=== PATIENT | female | born 1945 | race Caucasian/White ===

== ENCOUNTER 2017-02-10 04:04 | Inpatient (IN) ==
[2017-02-10] MEDS ORDERED: methylPREDNISolone 125 MG/2 ML VIAL IVP ONE (04:20)
[2017-02-10] MEDS ORDERED: 0.9 % Sodium Chloride 1,000 ML IVC ONE (04:20)
[2017-02-10] MEDS ORDERED: Ipratropium/Albuterol Neb 3 ML IH ONE (04:20)
[2017-02-10 05:05] LABS: Basophils % 0.4 %; Eosinophils # 0.3 K/mcL (0.0-0.6); Eosinophils % 2.9 %; Hematocrit 32.7 % (35.3-44.9); Hemoglobin 10.8 g/dL (11.5-15.4); Immature Granulocytes % 0.6 % (0-4); Lymphocytes # 0.7 K/mcL (0.6-4.6); Lymphocytes % 7.3 %; Mean Corpuscular Hemoglobin 31.4 pg (28.0-33.3); Mean Corpuscular Volume 95.1 fL (83.0-100.0); Mean Platelet Volume 9.4 fL (9.4-12.4); Monocytes # 0.7 K/mcL (0.0-1.3); Monocytes % 7.2 %; Platelet Count 200 K/mcL (140-400); Red Blood Count 3.44 M/mcL (3.82-4.97); Red Cell Distribution Width 13.6 % (11.5-14.5); Segmented Neutrophils % 81.6 %
--- NOTE | 2017-02-10 05:16 | Emergency Department Note ---
Disposition Clinical Impression: Confusion Fever Qualifiers: Fever type: unspecified Qualified Code(s): R50.9 - Fever, unspecified Sepsis Qualifiers: Sepsis type: sepsis due to unspecified organism Qualified Code(s): A41.9 - Sepsis, unspecified organism Urinary tract infection Qualifiers: Urinary tract infection type: site unspecified Hematuria presence: without hematuria Qualified Code(s): N39.0 - Urinary tract infection, site not specified Disposition: Admitted As Inpatient Condition: Good Referrals: Andrea Cruz MD [Primary Care Provider] - Forms: ED Satisfaction Letter Time of Disposition: 06:57 General Adult HPI - General Chief complaint: ED Shortness of Breath/Dyspnea Stated complaint: copd sherrill Time Seen by Provider: 02/10/17 04:13 Source: patient Limitations: no limitations Nursing Notes Reviewed: Yes Vital Signs Reviewed: Yes - History of Present Illness HPI Narrative: Patient presents emergency room in the care of the family. Family is concerned because she is acting differently at home. She was evaluated by her primary care provider started on antibiotic for kidney infection 5. She is still been complaining of urinary symptoms as well as this new change in mental status. Family brought her in for evaluation. Denied fevers chills nausea vomiting or diarrhea. Denies headache vision changes shortness of breath chest pain Onset (ago): day(s) (5 days) Radiation: non-radiation Pain Severity: mild Pain Scale: 0 Consistency: constant Improves with: nothing Worsens with: nothing Associated symptoms: Reports: confusion, loss of appetite, malaise Treatments Prior to Arrival: none - Related Data Home Medications Medication Instructions Recorded Confirmed Albuterol Sulfate [Proair 2 puff IH QID PRN 06/27/15 02/10/17 Respiclick] Amlodipine Besylate [Norvasc] 10 mg PO DAILY 06/27/15 02/10/17 Aspirin Enteric Coated [Aspirin EC] 81 mg PO DAILY 06/27/15 02/10/17 Atorvastatin Calcium [Lipitor] 40 mg PO HS 06/27/15 02/10/17 Clopidogrel [Plavix] 75 mg PO DAILY 06/27/15 02/10/17 Docusate Sodium [Stool Softener] 100 mg PO BID PRN 06/27/15 02/10/17 Famotidine [Pepcid] 20 mg PO BID 06/27/15 02/10/17 Gabapentin [Neurontin] 300 mg PO BID 06/27/15 02/10/17 HYDROcodone/Acet 5/325 mg [[place] 1 tab PO BID PRN #0 06/27/15 02/10/17 5-325 mg] Ipratropium [Atrovent Inhaler] 2 puff IH Q6H PRN #0 06/27/15 02/10/17 Isosorbide MONOnitrate [Isosorbide 30 mg PO DAILY 06/27/15 02/10/17 Mononitrate ER] Lisinopril [Zestril] 40 mg PO DAILY 06/27/15 02/10/17 Loratadine [Loradamed] 10 mg PO DAILY 06/27/15 02/10/17 Nitroglycerin [Nitrostat] 0.4 mg SL AD PRN #0 06/27/15 02/10/17 [place]-3 Acid Ethyl Esters [Lovaza] 1 gm PO TID 06/27/15 02/10/17 [place]-3/Dha/Epa/Fish Oil [Fish Oil 1,000 mg PO TID #0 06/27/15 02/10/17 1,000 mg Softgel] Polyethylene Glycol 3350 [Purelax] 17 gm PO DAILY PRN #0 06/27/15 02/10/17 Esomeprazole Magnesium [Nexium] 40 mg PO DAILY #0 06/28/15 02/10/17 Beclomethasone Diprop 40mcg [Qvar 2 puff IH BID 02/10/17 02/10/17 40 mcg] Benzonatate [Tessalon] 200 mg PO BID PRN 02/10/17 02/10/17 Budesonide/Formoterol 160/4.5 2 puff IH BIDR 02/10/17 02/10/17 [Symbicort 160/4.5] Calcium Carbonate/Vitamin D3 1 tab PO DAILY 02/10/17 02/10/17 [Calcium 500 + Vit D 200 Caplet] Carvedilol [Coreg] 6.25 mg PO BIDWM 02/10/17 02/10/17 Ergocalciferol (VITAMIN D2) 50,000 unit PO QWEEK 02/10/17 02/10/17 [Vitamin D2] Guaifenesin [Siltussin SA] 200 mg PO Q6H PRN 02/10/17 02/10/17 Melatonin 3 mg PO HS PRN 02/10/17 02/10/17 Mirtazapine [Remeron] 7.5 mg PO HS 02/10/17 02/10/17 Nitrofurantoin Monohyd/M-Cryst 100 mg PO BID 02/10/17 02/10/17 [Macrobid 100 mg Capsule] Allergies Allergy/AdvReac Type Severity Reaction Status Date / Time codeine Allergy Hives Verified 06/27/15 19:28 Penicillins Allergy Hives Verified 06/27/15 19:28 All systems ED: reviewed and negative except as stated. Constitutional: Denies: fever, chills Cardiovascular: Denies: palpitations, dyspnea on exertion Respiratory: Denies: cough, dyspnea, wheezes, hemoptysis Gastrointestinal: Denies: nausea, vomiting, diarrhea, constipation Genitourinary: Reports: dysuria, frequency Musculoskeletal: Denies: back pain, neck pain Integumentary: Denies: rash Neurological: Denies: headache Past Medical History - Past Medical History Attestation: Yes The following information was validated with the patient. Source: patient, obtained from family Medical history: Reports: COPD, coronary artery disease, CVA, DVT, diabetes, GERD, hyperlipidemia, hypertension, myocardial infarction, peripheral artery disease, renal disease, TIA Surgical history: Reports: appendectomy, cholecystectomy Psychiatric history: Reports: no psych history - Social History Smoking Status: Current every day smoker Smokeless Tobacco Status: No Alcohol use: Reports: none Drug use: Reports: none Physical Exam - General Limitations: no limitations General appearance: alert, in no apparent distress - Head Head exam: atraumatic, normocephalic, normal inspection - Neck Neck exam: Present: normal inspection, full ROM, trachea midline. Absent: tenderness - Chest Chest inspection: Present: normal inspection, symmetric chest wall rise. Absent : tenderness - Respiratory Respiratory exam: Present: normal lung sounds bilaterally, wheezes. Absent: respiratory distress, stridor, accessory muscle use - Cardiovascular Cardiovascular exam: Present: normal rhythm, tachycardia - Abdominal Exam Abdominal exam: Present: soft, Non-Tender, normal bowel sounds. Absent: tenderness, distention, guarding, rebound, rigidity, Wells's sign, Rovsing's sign - Extremities Exam Extremities exam: Present: normal inspection, full ROM. Absent: tenderness, pedal edema - Back Exam Back exam: Present: normal inspection - Neurological Exam Neurological exam: Present: alert - Skin Skin exam: Present: warm, dry, intact, normal color Course Course Narrative: Patient seen and examined the time of arrival. See history of present illness. 71-year-old female presents with family for evaluation of confusion at home. She was treated for a kidney infection approximately 5 days ago. She has been on home antibiotics. Since then patient says that she has been feeling better. Family was concerned because he noticed confusion today. Denied any recent falls or injuries. No medication changes. No other acute symptoms at this time. Patient denies any chest pain shortness of breath headache vision changes nausea vomiting or diarrhea. No fevers or chills. Patient does have known COPD and emphysema. She uses inhalers at home but no oxygen. Physical exam on presentation here shows a pleasant lady smiling and talkative female. She is in no apparent distress. Lungs do have coarse expiratory wheezing. No crackles noted on exam. Heart is regular. Abdomen is soft nontender nondistended. No CVA tenderness noted on evaluation. She was also shown is appropriately she has good capillary refill. She has full range of motion of extremities. Patient will have treatments and steroids provided here. Laboratory workup ordered. Concern is noted for fever and tachycardia on presentation. He started the sepsis panel that time. Fluids to be given antibiotic regimen ordered with concern for urinary tract infection. Nausea medication also degenerative. Chest x-ray EKG and troponin added as well. Patient still resting comfortably the bed. Disposition pending treatment course. Family agrees with the projected course of care. No other acute recommendations or concerns at this time. Patient will not have the 30 mg/kg fluid bolus because of her history of CHF and mild pitting edema in the lower extremities. Blood pressure is stable. We will continue to monitor. - Reevaluation(s) Reevaluation #1: There is abundant grossly contaminated urine. Mental status is returning to baseline. Breathing is less labored. Heart rate is coming down. Fluid hydration to be controlled at this point without clots as needed. Blood pressure stable. Patient has history of CHF so controlled fluid hydration for sepsis protocol to be utilized. Antibiotic regimen given. Hospitals patient this time for admission. Time: 06:30 Reevaluation #2: Patient found having urinary tract infection. Mental status is back to baseline. Hydration given with aliquots secondary to her CHF. Patient fever is coming under control fluid hydration Tylenol. Patient was discussed with the hospitalist Dr. triplett. We reviewed the patient's presentation symptoms and medical history. Intervention including steroids albuterol inhaler antibiotics fluid hydration. He had no other recommendations this time. Patient read by the hospital for urinary tract infection confusion and altered mental status and sepsis-like presentation. Patient still was not comfortable in the bed no other acute issues throughout the course. Emergency room. We will continue to monitor until the admission process is completed Time: 06:56 Vital Signs Temperature 101.2 F H 02/10/17 04:06 Pulse Rate 112 02/10/17 04:06 Respiratory Rate 24 02/10/17 04:06 Blood Pressure 137/66 02/10/17 04:06 O2 Sat by Pulse Oximetry 96 02/10/17 04:06 Temperature 101.2 F H 02/10/17 04:06 Pulse Rate 90 02/10/17 07:16 Respiratory Rate 18 02/10/17 07:16 Blood Pressure 113/61 02/10/17 07:16 O2 Sat by Pulse Oximetry 94 L 02/10/17 07:16 Oxygen Delivery Oxygen Delivery Nasal Cannula Medical Decision Making - MDM Narrative Medical decision making narrative: Confusion, urinary tract infection, fever, tachycardia, sepsis - Differential Diagnosis Initial depression, confusion, sepsis, fever - Medical Records Medical records reviewed: Yes I reviewed the patient's medical records. - Lab Data Lab results reviewed: Yes I reviewed the patient's lab results. Result diagrams: 02/10/17 04:43 02/10/17 04:43 - Radiology Data Radiology results reviewed: Yes I reviewed the patient's radiology results. chest at chest x-ray shows bilateral pulmonary edema no other acute pathology - EKG Data EKG #1 EKG attestation: Yes I reviewed and interpreted this EKG. EKG shows normal: sinus rhythm, axis, intervals, QRS complexes, ST-T waves Rate: normal Rhythm: NSR [place]/QRS: normal When compared to previous EKG there are: no significant changes Interpretation: no acute changes, unchanged when compared to prior tracing (date ) Critical Care Time Critical Care Time: Yes Total Critical Care Time: 35 Attestation: Independent of procedures or medical intervention Attestation Statement - Attestation Attestation: For this encounter, I have reviewed the resident, [employer], or PA documentation, treatment plan, and medical decision making; and I have had face to face time with this patient. 71-year-old female brought in by family for concerns of altered mental status, difficulty in breathing. Patient reports feeling lightheaded today and is unsteady on her feet. Patient reports falling without hitting her head or having loss of consciousness. Patient reports or difficulty in breathing is similar to previous COPD exacerbations. Patient is recently being treated for urinary tract infection. Patient has wheezing on the bilateral posterior lung leigh on physical exam. She has a urinary tract infection. Chest x-ray shows pulmonary edema. Patient will be admitted for sepsis and continuation of care.
[2017-02-10 05:18] LABS: Activated Partial Thrombo Time 30.3 Seconds (26.0-36.0); Albumin 2.8 g/dL (3.5-5.0); Albumin/Globulin Ratio 0.6 (1.1-2.2); Bilirubin,Direct 0.2 mg/dL (0.0-0.5); Bilirubin,Indirect 0.4 mg/dL (0.0-1.2); Bilirubin,Total 0.6 mg/dL (0.2-1.2); Calcium 8.5 mg/dL (8.6-10.8); Globulin 4.5 g/dL (2.4-3.5); Magnesium 1.5 mg/dL (1.6-2.6); Phosphorous 3.8 mg/dL (2.3-4.7); Potassium 4.5 mEq/L (3.5-4.5); Total Protein 7.3 g/dL (6.0-8.3)
[2017-02-10 05:54] LABS: Bilirubin,Urine Negative (Negative); Blood,Urine Large (Negative); Clarity,Urine Cloudy (Clear); Color,Urine Yellow (Yellow); Glucose,Urine (UA) Normal (Normal); Ketones,Urine Negative (Negative); Leukocyte Esterase,Urine Moderate (Negative); Nitrite,Urine Negative (Negative); Protein,Urine 100 mg/dL (Neg-Trace); Specific Gravity,Urine 1.018 (1.010-1.025); Urobilinogen,Urine Normal (Normal)
[2017-02-10 05:57] LABS: Hyaline Casts,Urine None Seen per lpf (None-Few); Squamous Epithelial Cell,Urine Many per lpf (None-Few); WBC,Urine 30-50 per hpf (0-3)
[2017-02-10 06:14] LABS: RBC,Urine 15-30 per hpf (0-3)
[2017-02-10 06:15] LABS: Bacteria,Urine Many per hpf (None-Few); Mucus,Urine Few (Few)
--- NOTE | 2017-02-10 07:10 | Electrocardiograph Report ---
[facility] Test Date: 2017-02-10 Pat Name: Libby Robertson Department: 104 Room: Gender: F [employer] Supervisor: : 1945 Requested By: Moris Juarez Order Number: [id number] Reading MD: Adryan Bell DO Measurements Intervals [place] Rate: 104 P: 75 IN: 138 QRS: 52 QRSD: 75 T: 69 QT: 288 QTc: 349 Interpretive Statements SINUS TACHYCARDIA ABNORMAL RHYTHM ECG Electronically Signed On 02-10-2017 7:08:51 EDT by Adryan Bell DO
--- NOTE | 2017-02-10 09:40 | Internal Med History&Physical ---
Date of Encounter: 02/10/17 Time of Encounter: 09:36 Assessment and Plan (1) Severe sepsis Current visit: Yes Status: Acute We will treat the patient with IV fluids, IV ceftriaxone. Follow-up blood cultures. I will not give her the 30 mL per KG bolus due to renal failure and chest x-ray showing pulmonary edema, I am concerned that giving her too much fluid could worsen her respiratory status and potentially could cause need for mechanical ventilation. I will repeat the lactic acid level at 3 hours. (2) Chronic kidney disease, stage 3 Current visit: Yes Status: Acute (3) Anemia in chronic kidney disease Current visit: Yes Status: Acute Monitor hemoglobin and hematocrit. Check iron studies. (4) Tobacco abuse disorder Current visit: Yes Status: Acute Nicotine patch. (5) Tobacco abuse counseling Current visit: Yes Status: Acute I have counseled the patient regarding smoking cessation for 7 minutes. (6) Acute kidney injury Current visit: Yes Status: Acute IV fluids. Avoid nephrotoxins. Hold lisinopril. Monitor kidney function. (7) COPD (chronic obstructive pulmonary disease) Current visit: No Status: Acute Inhaled albuterol and Atrovent. Continue Qvar and Symbicort. Qualifiers: COPD type: chronic bronchitis Chronic bronchitis type: simple Qualified Code(s): J41.0 - Simple chronic bronchitis (8) Urinary tract infection Current visit: Yes Status: Acute IV ceftriaxone. I have reviewed her prior urine cultures. The last one from June 2016 grew Escherichia coli which was multiply sensitive. Prior to that her urine cultures grew Proteus and Escherichia coli all sensitive to cephalosporins. A urine culture is pending. We will follow up sensitivities and adjust antibiotic therapy accordingly. Qualifiers: Urinary tract infection type: acute cystitis Hematuria presence: with hematuria Qualified Code(s): N30.01 - Acute cystitis with hematuria (9) Coronary artery disease Current visit: Yes Status: Acute Continue with aspiri , Plavix, nitrate statin and beta david. Qualifiers: Coronary Disease-Associated Artery/Lesion type: [place] artery [place] vs. transplanted heart: [place] heart Associated angina: without angina Qualified Code(s): I25.10 - Atherosclerotic heart disease of [place] coronary artery without angina pectoris (10) History of CVA (cerebrovascular accident) Current visit: Yes Status: Acute (11) Acute metabolic encephalopathy Current visit: Yes Status: Acute Possibly due to sepsis, urinary tract infection, also could be secondary to CO2 retention due to COPD and undiagnosed obstructive sleep apnea. I will hold the Neurontin which could contribute to altered mental status especially in the context of worsening kidney failure. I will check a ABG on room air. If the mental status does not improve will obtain a head CT given the patient's history of CVA. We will monitor her closely. We will institute fall precautions. She is at high risk for morbidity mortality and complications due to severe sepsis and altered mental status. Internal Medicine - H&P: HPI Chief complaint: Mental confusion Admitted From: Emergency Dept Plans for Post Hospital Care: Home History of present illness: .Ms. Robertson is a 71 year old female with past medical history significant for diabetes, COPD, chronic tobacco abuse and chronic renal insufficiency who was brought to the hospital for confusion and lower abdominal pain. She has been having lower abdominal pain for 1 week, she was diagnosed with a UTI by her primary care physician and was started on treatment with Macrobid 3 days ago. She was able to take her tablets however she started developing dysuria and worsening, moderate, burning lower abdominal pain triggered by urination. She reports associated fevers and chills, this is confirmed by the patient's daughter who says the patient has been having more confusion over the last 3 days and fever on and off. She reports associated nausea, no vomiting or diarrhea. She reports daytime somnolence and feeling more depressed. A 10 point review of systems was negative except per the history of present illness Family history was positive for history of coronary artery disease in the patient's father. Patient's daughter has bipolar disorder. Social history: Patient lives at home with her daughter, she smokes 30 cigarettes a day and has been a smoker all her life. Denies alcohol and drug use Past Med Surg Social Fam HX - Past Medical History Medical history: COPD, coronary artery disease, CVA, DVT, diabetes, GERD, hyperlipidemia, hypertension, myocardial infarction, peripheral artery disease, renal disease, TIA Psychiatric history: no psych history - Past Surgical History Surgical History: appendectomy, cholecystectomy, knee replacement - Social History Smoking Status: Current every day smoker Packs per day: 1.5 Smokeless Tobacco Status: No Alcohol use: none Drug use: none - Family History Father History Unknown: Yes Adopted: No Family Member Ethnicity: Non- Living Status: Hx Family Cardiac Disorders: Yes Hx Family Respiratory Disorders: Yes Hx Family Cancer: Yes Hx Family GI Disorders: No Hx Family Endocrine Disorder: No Hx Family Neuromuscular Disorders: Yes Hx Family Neurologic Disorders: Yes Hx Family HEENT Disorders: No Hx Family Autoimmune Disorders: No Internal Medicine - H&P: Meds Albuterol Sulfate [Proair Respiclick] 2 puff IH QID PRN 06/27/15 [History] Amlodipine Besylate [Norvasc] 10 mg PO DAILY 06/27/15 [History] Aspirin Enteric Coated [Aspirin EC] 81 mg PO DAILY 06/27/15 [History] Atorvastatin Calcium [Lipitor] 40 mg PO HS 06/27/15 [History] Clopidogrel [Plavix] 75 mg PO DAILY 06/27/15 [History] Docusate Sodium [Stool Softener] 100 mg PO BID PRN 06/27/15 [History] Famotidine [Pepcid] 20 mg PO BID 06/27/15 [History] Gabapentin [Neurontin] 300 mg PO BID 06/27/15 [History] HYDROcodone/Acet 5/325 mg [[place] 5-325 mg] 1 tab PO BID PRN #0 06/27/15 [ History] Ipratropium [Atrovent Inhaler] 2 puff IH Q6H PRN #0 06/27/15 [History] Isosorbide MONOnitrate [Isosorbide Mononitrate ER] 30 mg PO DAILY 06/27/15 [ History] Lisinopril [Zestril] 40 mg PO DAILY 06/27/15 [History] Loratadine [Loradamed] 10 mg PO DAILY 06/27/15 [History] Nitroglycerin [Nitrostat] 0.4 mg SL AD PRN #0 06/27/15 [History] [place]-3 Acid Ethyl Esters [Lovaza] 1 gm PO TID 06/27/15 [History] [place]-3/Dha/Epa/Fish Oil [Fish Oil 1,000 mg Softgel] 1,000 mg PO TID #0 [History] Polyethylene Glycol 3350 [Purelax] 17 gm PO DAILY PRN #0 06/27/15 [History] Esomeprazole Magnesium [Nexium] 40 mg PO DAILY #0 06/28/15 [History] Beclomethasone Diprop 40mcg [Qvar 40 mcg] 2 puff IH BID 02/10/17 [History] Benzonatate [Tessalon] 200 mg PO BID PRN 02/10/17 [History] Budesonide/Formoterol 160/4.5 [Symbicort 160/4.5] 2 puff IH BIDR 02/10/17 [ History] Calcium Carbonate/Vitamin D3 [Calcium 500 + Vit D 200 Caplet] 1 tab PO DAILY [History] Carvedilol [Coreg] 6.25 mg PO BIDWM 02/10/17 [History] Ergocalciferol (VITAMIN D2) [Vitamin D2] 50,000 unit PO QWEEK 02/10/17 [History] Guaifenesin [Siltussin SA] 200 mg PO Q6H PRN 02/10/17 [History] Melatonin 3 mg PO HS PRN 02/10/17 [History] Mirtazapine [Remeron] 7.5 mg PO HS 02/10/17 [History] Nitrofurantoin Monohyd/M-Cryst [Macrobid 100 mg Capsule] 100 mg PO BID 02/10/17 [History] Allergies codeine Allergy (Verified 06/27/15 19:28) Hives Penicillins Allergy (Verified 06/27/15 19:28) Hives All Systems PM: A 10-system review of systems was performed and is negative for pertinent findings except as documented above in the HPI. - Constitutional Vitals: Temp Pulse Resp BP Pulse Ox 97.0 F L 79 19 96/50 94 L 02/10/17 08:41 02/10/17 08:41 02/10/17 08:41 02/10/17 08:41 02/10/17 08:41 General appearance: Present: A&O X 3, no acute distress, obese - Head Head exam: Present: atraumatic, normocephalic - Eye Eye exam: Present: PERRL, conjuntiva pink, sclera anicteric Pupils: Present: PERRL - Respiratory Respiratory exam: Present: wheezes (Scattered expiratory wheezes). Absent: accessory muscle use, rales, rhonchi - Cardiovascular Cardiovascular exam: Present: RRR, +S1, +S2. Absent: diastolic murmur, gallop, rubs, systolic murmur - GI/Abdominal GI/Abdominal exam: Present: normal bowel sounds, soft, no peritoneal signs. Absent: distended, tenderness - Extremities Exam Extremities exam: Present: warm, radial pulses palpable and symetrical. Absent : calf tenderness, cyanotic, pedal edema - Neurological Exam Neurological exam: Present: CN II-XII intact, oriented X3, no focal deficits. Absent: pronater drift, facial droop, speech deficit - Skin Skin exam: Present: dry, intact Internal Med - H&P Results - Labs CBC & Chem 7: 02/10/17 04:43 02/10/17 04:43 - EKG Data -: EKG Interpreted by Myself (Sinus tachycardia 10 4 bpm ) EKG shows normal: axis, intervals, QRS complexes, ST-T waves
[2017-02-10] MEDS ORDERED: GuaiFENesin Liq 200 MG/10 ML UDC PO PRN (09:47)
[2017-02-10] MEDS ORDERED: Nitroglycerin 0.4 MG TAB.SUBL SL PRN (09:47)
[2017-02-10] MEDS ORDERED: Famotidine 20 MG TABLET PO SCH (10:00)
[2017-02-10] MEDS ORDERED: Ondansetron 4 MG/2 ML VIAL IVP PRN (10:02)
[2017-02-10] MEDS ORDERED: Acetaminophen 325 MG TABLET PO PRN (10:02)
[2017-02-10] MEDS ORDERED: Naloxone 0.4 MG/ML INJ IVP PRN (10:02)
[2017-02-10] MEDS ORDERED: *HR* Dextrose 50 % in Water (Syg) 50 ML SYRINGE IVP PRN (10:07)
[2017-02-10] MEDS ORDERED: Dextrose Gel 15 GM PO PRN ×2 (10:07)
[2017-02-10] MEDS ORDERED: Albuterol 2.5 MG/3 ML NEBULIZER IH PRN (10:14)
[2017-02-10] MEDS ORDERED: 0.9 % Sodium Chloride 1,000 ML IVC SCH (10:15)
[2017-02-10 10:52] LABS: Hemoglobin A1C 5.4 %
[2017-02-10 11:12] LABS: ABG Base Excess -6.3 mEq/L (-2.0 to 3.0); ABG Oxygen Saturation 93 % (95-98); ABG PCO2 36 mmHg (35-45); ABG PH 7.33 pH Units (7.32-7.45); ABG PO2 71 mmHg (85-104); ABG TCO2 20.1 mEq/L (20-26)
[2017-02-10 11:13] LABS: Blood Gas FiO2 28 %
[2017-02-10] MEDS: Budesonide/Formoterol 160/4.5 MDI IH SCH ×2 (11:23→21:23)
[2017-02-10] MEDS: Nicotine 21 MG PATCH.TD24 TD SCH (11:25)
[2017-02-10] MEDS: *HR* HYDROcodone/Acet 5/325 mg TABLET PO PRN (12:59)
[2017-02-10] MEDS: Insulin LISPRO 300 UNITS/3 ML VIAL SQ SCH ×2 (13:24→16:35)
[2017-02-10] MEDS: Ipratropium/Albuterol Neb 3 ML IH SCH ×2 (15:45→21:23)
[2017-02-10 20:13] LABS: Acinetobacter baumannii by PCR Not Detected (Not Detect); Candida albicans by PCR Not Detected (Not Detect); Candida glabrata by PCR Not Detected (Not Detect); Candida krusei by PCR Not Detected (Not Detect); Candida parapsilosis by PCR Not Detected (Not Detect); Candida tropicalis by PCR Not Detected (Not Detect); Enterococcus by PCR Not Detected (Not Detect); Escherichia coli by PCR ***DETECTED*** (Not Detect); Klebsiella oxytoca by PCR Not Detected (Not Detect); Klebsiella pneumoniae by PCR Not Detected (Not Detect); Pseudomonas aeruginosa by PCR Not Detected (Not Detect); Serratia marcescens by PCR Not Detected (Not Detect); Staphylococcus aureus by PCR Not Detected (Not Detect); Streptococcus agalactiae(B)PCR Not Detected (Not Detect); Streptococcus by PCR Not Detected (Not Detect); Streptococcus pneumoniae PCR Not Detected (Not Detect); Streptococcus pyogenes (A) PCR Not Detected (Not Detect)
[2017-02-10] MEDS: Mirtazapine 15 MG TABLET PO SCH (20:34)
[2017-02-10] MEDS ORDERED: Melatonin 3 MG TABLET PO PRN (21:00)
[2017-02-10] MEDS: Beclomethasone 40mcg MDI IH SCH (21:23)
[2017-02-10] MEDS: Levofloxacin 750 MG/150 ML 750 MG/150 ML BAG IVPB SCH (21:27)
[2017-02-11] MEDS: Ipratropium/Albuterol Neb 3 ML IH SCH ×4 (03:44→21:00)
[2017-02-11 06:38] LABS: Basophils % 0.1 %; Eosinophils % 0.1 %; Hematocrit 31.4 % (35.3-44.9); Hemoglobin 10.4 g/dL (11.5-15.4); Immature Granulocytes % 1.2 % (0-4); Lymphocytes # 1.1 K/mcL (0.6-4.6); Lymphocytes % 10.3 %; Mean Corpuscular HGB Conc 33.1 g/dL (31.6-35.5); Mean Corpuscular Hemoglobin 31.5 pg (28.0-33.3); Mean Corpuscular Volume 95.2 fL (83.0-100.0); Mean Platelet Volume 10.3 fL (9.4-12.4); Monocytes # 0.4 K/mcL (0.0-1.3); Monocytes % 4.2 %; Neutrophils # 8.7 K/mcL (1.6-8.9); Platelet Count 224 K/mcL (140-400); Red Cell Distribution Width 13.5 % (11.5-14.5); Segmented Neutrophils % 84.1 %
[2017-02-11 06:54] LABS: Calcium 9.2 mg/dL (8.6-10.8); Magnesium 1.8 mg/dL (1.6-2.6); Potassium 4.5 mEq/L (3.5-4.5)
[2017-02-11] MEDS: Insulin LISPRO 300 UNITS/3 ML VIAL SQ SCH ×3 (07:50→15:54)
[2017-02-11] MEDS: Nicotine 21 MG PATCH.TD24 TD SCH (07:52)
[2017-02-11] MEDS: amLODIPine 5 MG TABLET PO SCH (07:53)
[2017-02-11] MEDS: Aspirin Enteric Coated 81 MG Tablet PO SCH (07:54)
[2017-02-11] MEDS: Isosorbide MONOnitrate (24 HR) 30 MG TAB.ER.24H PO SCH (07:54)
[2017-02-11] MEDS: Loratadine 10 MG TABLET PO SCH (07:54)
[2017-02-11] MEDS: Famotidine 20 MG TABLET PO SCH (07:54)
--- NOTE | 2017-02-11 10:35 | Internal Med Progress Note ---
Date of Encounter: 02/11/17 Time of Encounter: 10:32 - Assessment and plan (1) Severe sepsis Current Visit: Yes Status: Acute Assessment and plan: Likely source is urinary tract infection. Review of her medical records prior UTIs were sensitive to fluoroquinolones. We will treat her with Levaquin. Monitor temperature curve and WBC trend. IV fluids. (2) Chronic kidney disease, stage 3 Current Visit: Yes Status: Acute Assessment and plan: Avoid nephrotoxins. Monitor kidney function. (3) Anemia in chronic kidney disease Current Visit: Yes Status: Acute Assessment and plan: Transfuse if hemoglobin below 8.0. Check hemoglobin and hematocrit on the morning. (4) Tobacco abuse disorder Current Visit: Yes Status: Acute Assessment and plan: Continue with NicoDerm. (5) Tobacco abuse counseling Current Visit: Yes Status: Acute (6) Acute kidney injury Current Visit: Yes Status: Acute (7) COPD (chronic obstructive pulmonary disease) Current Visit: No Status: Acute Qualifiers: COPD type: chronic bronchitis Chronic bronchitis type: simple Qualified Code(s): J41.0 - Simple chronic bronchitis (8) Urinary tract infection Current Visit: Yes Status: Acute Qualifiers: Urinary tract infection type: acute cystitis Hematuria presence: with hematuria Qualified Code(s): N30.01 - Acute cystitis with hematuria (9) Coronary artery disease Current Visit: Yes Status: Acute Qualifiers: Coronary Disease-Associated Artery/Lesion type: [place] artery [place] vs. transplanted heart: [place] heart Associated angina: without angina Qualified Code(s): I25.10 - Atherosclerotic heart disease of [place] coronary artery without angina pectoris (10) History of CVA (cerebrovascular accident) Current Visit: Yes Status: Acute (11) Acute metabolic encephalopathy Current Visit: Yes Status: Acute - Subjective Interval history: Feels better, dysuria has improved over last 24 hrs, now very mild. She says SOB , w/ some wheezing, no CP no fever - Constitutional Vitals: Temp Pulse Resp BP Pulse Ox 97.7 F 57 18 96/53 97 02/11/17 10:27 02/11/17 10:27 02/11/17 10:27 02/11/17 10:27 02/11/17 10:27 General appearance: Present: A&O X 3, no acute distress, obese - Eye Eye exam: Present: PERRL, conjuntiva pink, sclera anicteric Pupils: Present: PERRL - Neck Neck exam general surgery: Present: supple, trachea midline. Absent: lymphadenopathy - Respiratory Respiratory exam: Present: CTAB. Absent: accessory muscle use, rales, rhonchi, wheezes - Cardiovascular Cardiovascular exam: Present: RRR, +S1, +S2. Absent: diastolic murmur, gallop, rubs, systolic murmur - GI/Abdominal GI/Abdominal exam: Present: normal bowel sounds, soft, no peritoneal signs. Absent: distended, tenderness Internal Medicine: Result - Labs CBC & Chem 7: 02/11/17 05:47 02/11/17 05:47 Labs: Short CBC 02/11/17 Range/Units 05:47 WBC 10.3 (4.3-11.1) K/mcL Hgb 10.4 L (11.5-15.4) g/dL Hct 31.4 L (35.3-44.9) % Plt Count 224 (140-400) K/mcL Neutrophils # 8.7 (1.6-8.9) K/mcL BMP 02/11/17 05:47 Sodium 140 Potassium 4.5 Chloride 112 H Carbon Dioxide 18 L BUN 33 H Creatinine 1.34 H Glucose 170 H Calcium 9.2 - ABG Interpretation ABG results: ABG ABG pH 7.33 pH Units (7.32-7.45) 02/10/17 11:00 ABG pCO2 36 mmHg (35-45) 02/10/17 11:00 ABG pO2 71 mmHg (85-104) L 02/10/17 11:00 ABG O2 Saturation 93 % (95-98) L 02/10/17 11:00 PT/INR, D-dimer PT 11.0 Seconds (9.4-12.1) 02/10/17 04:43 Consult Discharge Plan - Plan Referrals: Andrea Cruz MD [Primary Care Provider] - 02/18/17 10:15 am
[2017-02-11] MEDS: *HR* HYDROcodone/Acet 5/325 mg TABLET PO PRN (10:37)
[2017-02-11] MEDS: Beclomethasone 40mcg MDI IH SCH ×2 (10:52→21:00)
[2017-02-11] MEDS: Budesonide/Formoterol 160/4.5 MDI IH SCH ×2 (10:52→21:00)
[2017-02-11] MEDS: predniSONE 20 MG TABLET PO SCH (11:21)
[2017-02-11] MEDS: Mirtazapine 15 MG TABLET PO SCH (20:13)
[2017-02-12] MEDS: Ipratropium/Albuterol Neb 3 ML IH SCH ×4 (04:02→21:51)
[2017-02-12] MEDS: *HR* HYDROcodone/Acet 5/325 mg TABLET PO PRN (06:00)
[2017-02-12 07:48] LABS: Basophils % 0.1 %; Eosinophils % 0.1 %; Hematocrit 28.3 % (35.3-44.9); Hemoglobin 9.3 g/dL (11.5-15.4); Immature Granulocytes % 1.5 % (0-4); Lymphocytes # 1.8 K/mcL (0.6-4.6); Lymphocytes % 18.4 %; Mean Corpuscular HGB Conc 32.9 g/dL (31.6-35.5); Mean Corpuscular Hemoglobin 30.9 pg (28.0-33.3); Monocytes # 0.6 K/mcL (0.0-1.3); Monocytes % 5.7 %; Neutrophils # 7.3 K/mcL (1.6-8.9); Platelet Count 233 K/mcL (140-400); Red Blood Count 3.01 M/mcL (3.82-4.97); Red Cell Distribution Width 13.8 % (11.5-14.5); Segmented Neutrophils % 74.2 %
[2017-02-12] MEDS: Aspirin Enteric Coated 81 MG Tablet PO SCH (08:00)
[2017-02-12] MEDS: Insulin LISPRO 300 UNITS/3 ML VIAL SQ SCH ×3 (08:00→17:02)
[2017-02-12] MEDS: Isosorbide MONOnitrate (24 HR) 30 MG TAB.ER.24H PO SCH (08:01)
[2017-02-12] MEDS: Loratadine 10 MG TABLET PO SCH (08:01)
[2017-02-12] MEDS: Famotidine 20 MG TABLET PO SCH (08:01)
[2017-02-12] MEDS: amLODIPine 5 MG TABLET PO SCH (08:02)
[2017-02-12] MEDS: predniSONE 20 MG TABLET PO SCH (08:02)
[2017-02-12 08:06] LABS: BUN/Creatinine Ratio 31 (6-26); Blood Urea Nitrogen 33 mg/dL (7-20); Calcium 8.8 mg/dL (8.6-10.8); Carbon Dioxide 21 mEq/L (19-29); Chloride 113 mEq/L (98-109); Glucose 110 mg/dL (70-99); Osmolality,Calculated 300 (280-300); Potassium 4.4 mEq/L (3.5-4.5); Sodium 141 mEq/L (136-145); eGFR For African Americans > 60 (> 60); eGFR For Non-African Americans 52 (> 60)
[2017-02-12] MEDS: Nicotine 21 MG PATCH.TD24 TD SCH (08:08)
[2017-02-12] MEDS: Beclomethasone 40mcg MDI IH SCH ×2 (10:06→21:53)
[2017-02-12] MEDS: Budesonide/Formoterol 160/4.5 MDI IH SCH ×2 (10:06→21:53)
--- NOTE | 2017-02-12 13:39 | Internal Med Progress Note ---
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 iv Levaquin since she is allergic to PCN. Likely source is urinary tract infection. Review of her medical records prior UTIs were sensitive to fluoroquinolones. We will treat her with Levaquin. Monitor temperature curve and WBC trend. IV fluids. repeat blood cultures today. f/u prelim in am (2) Chronic kidney disease, stage 3 Current Visit: Yes Status: Acute Assessment and plan: Avoid nephrotoxins. Monitor kidney function. Cr improving. (3) Anemia in chronic kidney disease Current Visit: Yes Status: Acute Assessment and plan: Transfuse if hemoglobin below 8.0. Check hemoglobin and hematocrit on the morning. (4) Tobacco abuse disorder Current Visit: Yes Status: Acute Assessment and plan: Continue with NicoDerm. (5) Tobacco abuse counseling Current Visit: Yes Status: Acute (6) Acute kidney injury Current Visit: Yes Status: Acute Assessment and plan: Encourage oral fluids, no need for ivf. Cr improving (7) COPD (chronic obstructive pulmonary disease) Current Visit: No Status: Acute Assessment and plan: wheezing today, SOB. Add prednisone, ct Duoneb Qualifiers: COPD type: chronic bronchitis Chronic bronchitis type: simple Qualified Code(s): J41.0 - Simple chronic bronchitis (8) Urinary tract infection Current Visit: Yes Status: Acute Qualifiers: Urinary tract infection type: acute cystitis Hematuria presence: with hematuria Qualified Code(s): N30.01 - Acute cystitis with hematuria (9) Coronary artery disease Current Visit: Yes Status: Acute Qualifiers: Coronary Disease-Associated Artery/Lesion type: [place] artery [place] vs. transplanted heart: [place] heart Associated angina: without angina Qualified Code(s): I25.10 - Atherosclerotic heart disease of [place] coronary artery without angina pectoris (10) History of CVA (cerebrovascular accident) Current Visit: Yes Status: Acute (11) Acute metabolic encephalopathy Current Visit: Yes Status: Acute - Subjective Interval history: 01/15 pt says SOB now mild improved since yesterday. Dysuria has resolved Feels better, dysuria has improved over last 24 hrs, now very mild. She says SOB , w/ some wheezing, no CP no fever - Constitutional Vitals: Temp Pulse Resp BP Pulse Ox 98.3 F 64 18 100/58 97 02/12/17 10:58 02/12/17 10:58 02/12/17 10:58 02/12/17 10:58 02/12/17 10:58 General appearance: Present: A&O X 3, no acute distress, obese - Eye Eye exam: Present: PERRL, conjuntiva pink, sclera anicteric Pupils: Present: PERRL - Respiratory Respiratory exam: Present: CTAB, wheezes. Absent: accessory muscle use, rales, rhonchi - Cardiovascular Cardiovascular exam: Present: RRR, +S1, +S2. Absent: diastolic murmur, gallop, rubs, systolic murmur - GI/Abdominal GI/Abdominal exam: Present: normal bowel sounds, soft, no peritoneal signs. Absent: distended, tenderness - Extremities Exam Extremities exam: Present: warm, radial pulses palpable and symetrical. Absent : calf tenderness, cyanotic, pedal edema - Skin Skin exam: Present: dry, intact Internal Medicine: Result - Labs CBC & Chem 7: 02/12/17 06:40 02/12/17 06:40 Labs: Short CBC 02/12/17 Range/Units 06:40 WBC 9.8 (4.3-11.1) K/mcL Hgb 9.3 L (11.5-15.4) g/dL Hct 28.3 L (35.3-44.9) % Plt Count 233 (140-400) K/mcL Neutrophils # 7.3 (1.6-8.9) K/mcL BMP 02/12/17 06:40 Sodium 141 Potassium 4.4 Chloride 113 H Carbon Dioxide 21 BUN 33 H Creatinine 1.05 Glucose 110 H Calcium 8.8 - ABG Interpretation ABG results: ABG ABG pH 7.33 pH Units (7.32-7.45) 02/10/17 11:00 ABG pCO2 36 mmHg (35-45) 02/10/17 11:00 ABG pO2 71 mmHg (85-104) L 02/10/17 11:00 ABG O2 Saturation 93 % (95-98) L 02/10/17 11:00 PT/INR, D-dimer PT 11.0 Seconds (9.4-12.1) 02/10/17 04:43 Consult Discharge Plan - Plan Referrals: Andrea Cruz MD [Primary Care Provider] - 02/18/17 10:15 am
[2017-02-12] MEDS: Levofloxacin 750 MG/150 ML 750 MG/150 ML BAG IVPB SCH (22:10)
[2017-02-12] MEDS: Mirtazapine 15 MG TABLET PO SCH (22:12)
[2017-02-13] MEDS: Ipratropium/Albuterol Neb 3 ML IH SCH ×4 (04:22→21:58)
[2017-02-13] MEDS: Insulin LISPRO 300 UNITS/3 ML VIAL SQ SCH ×3 (07:34→16:22)
[2017-02-13] MEDS: Aspirin Enteric Coated 81 MG Tablet PO SCH (07:35)
[2017-02-13] MEDS: Famotidine 20 MG TABLET PO SCH (07:35)
[2017-02-13] MEDS: amLODIPine 5 MG TABLET PO SCH (07:35)
[2017-02-13] MEDS: Loratadine 10 MG TABLET PO SCH (07:35)
[2017-02-13] MEDS: predniSONE 20 MG TABLET PO SCH (07:35)
[2017-02-13] MEDS: Isosorbide MONOnitrate (24 HR) 30 MG TAB.ER.24H PO SCH (07:36)
[2017-02-13 07:51] LABS: Basophils % 0.3 %; Eosinophils # 0.1 K/mcL (0.0-0.6); Hematocrit 29.7 % (35.3-44.9); Hemoglobin 9.8 g/dL (11.5-15.4); Immature Granulocytes % 2.3 % (0-4); Lymphocytes # 2.9 K/mcL (0.6-4.6); Lymphocytes % 30.3 %; Mean Corpuscular Hemoglobin 30.5 pg (28.0-33.3); Mean Corpuscular Volume 92.5 fL (83.0-100.0); Mean Platelet Volume 9.4 fL (9.4-12.4); Monocytes # 0.7 K/mcL (0.0-1.3); Monocytes % 7.6 %; Neutrophils # 5.6 K/mcL (1.6-8.9); Platelet Count 240 K/mcL (140-400); Red Blood Count 3.21 M/mcL (3.82-4.97); Red Cell Distribution Width 13.5 % (11.5-14.5); Segmented Neutrophils % 58.5 %
[2017-02-13 08:00] LABS: BUN/Creatinine Ratio 36 (6-26); Blood Urea Nitrogen 32 mg/dL (7-20); Calcium 8.6 mg/dL (8.6-10.8); Carbon Dioxide 23 mEq/L (19-29); Chloride 110 mEq/L (98-109); Glucose 83 mg/dL (70-99); Osmolality,Calculated 302 (280-300); Potassium 4.1 mEq/L (3.5-4.5); Sodium 143 mEq/L (136-145); eGFR For African Americans > 60 (> 60); eGFR For Non-African Americans > 60 (> 60)
--- NOTE | 2017-02-13 09:42 | Internal Med Progress Note ---
Date of Encounter: 02/13/17 Time of Encounter: 09:40 - Assessment and plan (1) Severe sepsis Current Visit: Yes Status: Acute Assessment and plan: 02/14: Repeat blood cultures pending. Patient has been afebrile. White count is within normal limits. She received treatment with IV Levaquin every 48 hours. Mild kidney function has improved. I will change Levaquin to every 24 hours. Follow-up blood cultures and if negative I will switch to oral antibiotic and planned to discharge home tomorrow. 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 iv Levaquin since she is allergic to PCN. Likely source is urinary tract infection. Review of her medical records prior UTIs were sensitive to fluoroquinolones. We will treat her with Levaquin. Monitor temperature curve and WBC trend. IV fluids. repeat blood cultures today. f/u prelim in am (2) Chronic kidney disease, stage 3 Current Visit: Yes Status: Acute Assessment and plan: Avoid nephrotoxins. Monitor kidney function. Cr continuing to improve. (3) Anemia in chronic kidney disease Current Visit: Yes Status: Acute Assessment and plan: Transfuse if hemoglobin below 8.0. Check hemoglobin and hematocrit tomorrow. Hemoglobin is stable. We will check iron panel and ferritin B12 and folate. (4) Tobacco abuse disorder Current Visit: Yes Status: Acute Assessment and plan: Continue with NicoDerm. I have provided smoking cessation counseling for 5 minutes today. She intends to continue using the patch and quit smoking. (5) Tobacco abuse counseling Current Visit: Yes Status: Acute (6) Acute kidney injury Current Visit: Yes Status: Acute Assessment and plan: Encourage oral fluids, no need for ivf. Cr improving (7) COPD (chronic obstructive pulmonary disease) Current Visit: No Status: Acute Assessment and plan: wheezing today, SOB improved, mild exacerbation. Continue with prednisone, ct Duoneb Qualifiers: COPD type: chronic bronchitis Chronic bronchitis type: simple Qualified Code(s): J41.0 - Simple chronic bronchitis (8) Urinary tract infection Current Visit: Yes Status: Acute Qualifiers: Urinary tract infection type: acute cystitis Hematuria presence: with hematuria Qualified Code(s): N30.01 - Acute cystitis with hematuria (9) Coronary artery disease Current Visit: Yes Status: Acute Qualifiers: Coronary Disease-Associated Artery/Lesion type: [place] artery [place] vs. transplanted heart: [place] heart Associated angina: without angina Qualified Code(s): I25.10 - Atherosclerotic heart disease of [place] coronary artery without angina pectoris (10) History of CVA (cerebrovascular accident) Current Visit: Yes Status: Acute (11) Acute metabolic encephalopathy Current Visit: Yes Status: Acute - Subjective Interval history: 02/13/2017: Patient reports 0/10 dysuria with no abdominal pain. No fever. She has been afebrile for the last 48 hours. She denies chest pain and says that her shortness of breath has improved since yesterday. 01/15 pt says SOB now mild improved since yesterday. Dysuria has resolved Feels better, dysuria has improved over last 24 hrs, now very mild. She says SOB , w/ some wheezing, no CP no fever - Constitutional Vitals: Temp Pulse Resp BP Pulse Ox 97.8 F 67 18 126/66 96 02/13/17 06:39 02/13/17 06:39 02/13/17 06:39 02/13/17 06:39 02/13/17 07:40 General appearance: Present: A&O X 3, no acute distress, obese - Respiratory Respiratory exam: Present: wheezes. Absent: accessory muscle use, rales, rhonchi - Cardiovascular Cardiovascular exam: Present: RRR, +S1, +S2. Absent: diastolic murmur, gallop, rubs, systolic murmur - GI/Abdominal GI/Abdominal exam: Present: normal bowel sounds, soft, no peritoneal signs. Absent: distended, tenderness - Extremities Exam Extremities exam: Present: warm, radial pulses palpable and symetrical. Absent : calf tenderness, cyanotic, pedal edema - Skin Skin exam: Present: dry, intact Internal Medicine: Result - Labs CBC & Chem 7: 02/13/17 07:19 02/13/17 07:19 Labs: Short CBC 02/13/17 Range/Units 07:19 WBC 9.6 (4.3-11.1) K/mcL Hgb 9.8 L (11.5-15.4) g/dL Hct 29.7 L (35.3-44.9) % Plt Count 240 (140-400) K/mcL Neutrophils # 5.6 (1.6-8.9) K/mcL BMP 02/13/17 07:19 Sodium 143 Potassium 4.1 Chloride 110 H Carbon Dioxide 23 BUN 32 H Creatinine 0.88 Glucose 83 Calcium 8.6 - ABG Interpretation ABG results: ABG ABG pH 7.33 pH Units (7.32-7.45) 02/10/17 11:00 ABG pCO2 36 mmHg (35-45) 02/10/17 11:00 ABG pO2 71 mmHg (85-104) L 02/10/17 11:00 ABG O2 Saturation 93 % (95-98) L 02/10/17 11:00 PT/INR, D-dimer PT 11.0 Seconds (9.4-12.1) 02/10/17 04:43 Consult Discharge Plan - Plan Referrals: Andrea Cruz MD [Primary Care Provider] - 02/18/17 10:15 am
[2017-02-13] MEDS: Beclomethasone 40mcg MDI IH SCH ×2 (10:07→21:59)
[2017-02-13] MEDS: Budesonide/Formoterol 160/4.5 MDI IH SCH ×2 (10:07→22:02)
[2017-02-13] MEDS: Nicotine 21 MG PATCH.TD24 TD SCH (14:07)
[2017-02-13] MEDS: Mirtazapine 15 MG TABLET PO SCH (21:04)
[2017-02-13] MEDS ORDERED: Levofloxacin 750 MG/150 ML 750 MG/150 ML BAG IVPB SCH (22:00)
[2017-02-14] MEDS: Ipratropium/Albuterol Neb 3 ML IH SCH ×2 (03:49→10:42)
[2017-02-14 05:45] LABS: Basophils % 0.2 %; Eosinophils # 0.1 K/mcL (0.0-0.6); Eosinophils % 1.1 %; Hematocrit 28.9 % (35.3-44.9); Hemoglobin 9.8 g/dL (11.5-15.4); Immature Granulocytes % 3.3 % (0-4); Lymphocytes # 3.1 K/mcL (0.6-4.6); Lymphocytes % 29.8 %; Mean Corpuscular HGB Conc 33.9 g/dL (31.6-35.5); Mean Corpuscular Hemoglobin 31.4 pg (28.0-33.3); Mean Corpuscular Volume 92.6 fL (83.0-100.0); Mean Platelet Volume 9.4 fL (9.4-12.4); Monocytes # 0.8 K/mcL (0.0-1.3); Monocytes % 7.1 %; Neutrophils # 6.2 K/mcL (1.6-8.9); Platelet Count 238 K/mcL (140-400); Red Blood Count 3.12 M/mcL (3.82-4.97); Red Cell Distribution Width 13.4 % (11.5-14.5); Segmented Neutrophils % 58.5 %
[2017-02-14 05:58] LABS: % Iron Saturation 37 % (15-50); BUN/Creatinine Ratio 33 (6-26); Blood Urea Nitrogen 31 mg/dL (7-20); Calcium 8.6 mg/dL (8.6-10.8); Carbon Dioxide 26 mEq/L (19-29); Chloride 107 mEq/L (98-109); Glucose 86 mg/dL (70-99); Iron 99 mcg/dL (50-170); Osmolality,Calculated 296 (280-300); Potassium 4.1 mEq/L (3.5-4.5); Sodium 140 mEq/L (136-145); Transferrin 190 mg/dL (180-382); eGFR For African Americans > 60 (> 60); eGFR For Non-African Americans 58 (> 60)
[2017-02-14 06:21] LABS: Ferritin 467 ng/ml (5-204)
[2017-02-14 06:35] LABS: Folate 5.1 ng/mL (7.0-31.4)
[2017-02-14 07:52] VITALS: BP 138/74
[2017-02-14] MEDS: Aspirin Enteric Coated 81 MG Tablet PO SCH (08:09)
[2017-02-14] MEDS: amLODIPine 5 MG TABLET PO SCH (08:09)
[2017-02-14] MEDS: Loratadine 10 MG TABLET PO SCH (08:09)
[2017-02-14] MEDS: Famotidine 20 MG TABLET PO SCH (08:09)
[2017-02-14] MEDS: Isosorbide MONOnitrate (24 HR) 30 MG TAB.ER.24H PO SCH (08:09)
[2017-02-14] MEDS: predniSONE 20 MG TABLET PO SCH (08:10)
[2017-02-14] MEDS: Beclomethasone 40mcg MDI IH SCH (10:42)
[2017-02-14] MEDS: Budesonide/Formoterol 160/4.5 MDI IH SCH (10:42)
[2017-02-14] MEDS: Insulin LISPRO 300 UNITS/3 ML VIAL SQ SCH ×2 (10:49→12:12)
--- NOTE | 2017-02-14 11:45 | Discharge Summary ---
Date of Encounter: 02/14/17 Time of Encounter: 11:44 - Discharge Diagnosis (1) Severe sepsis Priority: Primary Status: Acute (2) Chronic kidney disease, stage 3 Priority: Secondary Status: Acute (3) Anemia in chronic kidney disease Priority: Secondary Status: Acute (4) Tobacco abuse disorder Priority: Secondary Status: Acute (5) Tobacco abuse counseling Priority: Secondary Status: Acute (6) Acute kidney injury Priority: Secondary Status: Acute (7) COPD (chronic obstructive pulmonary disease) Priority: Secondary Status: Acute Qualifiers: COPD type: chronic bronchitis Chronic bronchitis type: simple Qualified Code(s): J41.0 - Simple chronic bronchitis (8) Urinary tract infection Priority: Secondary Status: Acute Qualifiers: Urinary tract infection type: acute cystitis Hematuria presence: with hematuria Qualified Code(s): N30.01 - Acute cystitis with hematuria (9) Coronary artery disease Priority: Secondary Status: Acute Qualifiers: Coronary Disease-Associated Artery/Lesion type: [place] artery [place] vs. transplanted heart: [place] heart Associated angina: without angina Qualified Code(s): I25.10 - Atherosclerotic heart disease of [place] coronary artery without angina pectoris (10) History of CVA (cerebrovascular accident) Priority: Secondary Status: Acute (11) Acute metabolic encephalopathy Priority: Secondary Status: Acute - Discharge Medications Prescriptions: Albuterol Neb [Proventil Neb] 2.5 mg IH Q6H PRN #30 inhsol PRN Reason: Shortness Of Breath/Wheezing Ipratropium/Albuterol Neb [Duoneb] 3 ml IH TID #60 inhsol Levofloxacin [Levaquin] 750 mg PO DAILY #10 tablet Nicotine Patch [Nicoderm] 21 mg TD Q24H #30 patch.td24 PredniSONE 40 mg PO DAILY #4 tablet Home Medications: Albuterol Sulfate [Proair Respiclick] 2 puff IH QID PRN 06/27/15 [History] Amlodipine Besylate [Norvasc] 10 mg PO DAILY 06/27/15 [History] Aspirin Enteric Coated [Aspirin EC] 81 mg PO DAILY 06/27/15 [History] Atorvastatin Calcium [Lipitor] 40 mg PO HS 06/27/15 [History] Clopidogrel [Plavix] 75 mg PO DAILY 06/27/15 [History] Docusate Sodium [Stool Softener] 100 mg PO BID PRN 06/27/15 [History] Famotidine [Pepcid] 20 mg PO BID 06/27/15 [History] Gabapentin [Neurontin] 300 mg PO BID 06/27/15 [History] HYDROcodone/Acet 5/325 mg [[place] 5-325 mg] 1 tab PO BID PRN #0 06/27/15 [ History] Ipratropium [ATROVENT Inhaler] 2 puff IH Q6H PRN #0 06/27/15 [History] Isosorbide MONOnitrate [Isosorbide Mononitrate ER] 30 mg PO DAILY 06/27/15 [ History] Loratadine [Loradamed] 10 mg PO DAILY 06/27/15 [History] Nitroglycerin [Nitrostat] 0.4 mg SL AD PRN #0 06/27/15 [History] [place]-3 Acid Ethyl Esters [Lovaza] 1 gm PO TID 06/27/15 [History] [place]-3/Dha/Epa/Fish Oil [Fish Oil 1,000 mg Softgel] 1,000 mg PO TID #0 [History] Polyethylene Glycol 3350 [Purelax] 17 gm PO DAILY PRN #0 06/27/15 [History] Esomeprazole Magnesium [Nexium] 40 mg PO DAILY #0 06/28/15 [History] Budesonide/Formoterol 160/4.5 [Symbicort 160/4.5] 2 puff IH BIDR 02/10/17 [ History] Calcium Carbonate/Vitamin D3 [Calcium 500-Vit D3 200 Caplet] 1 tab PO DAILY [History] Carvedilol [Coreg] 6.25 mg PO BIDWM 02/10/17 [History] Ergocalciferol (VITAMIN D2) [Vitamin D2] 50,000 unit PO QWEEK 02/10/17 [History] Guaifenesin [Siltussin SA] 200 mg PO Q6H PRN 02/10/17 [History] Melatonin 3 mg PO HS PRN 02/10/17 [History] Mirtazapine [Remeron] 7.5 mg PO HS 02/10/17 [History] Nitrofurantoin Monohyd/M-Cryst [Macrobid 100 mg Capsule] 100 mg PO BID 02/10/17 [History] Albuterol Neb [Proventil Neb] 2.5 mg IH Q6H PRN #30 inhsol 02/14/17 [Rx] Ipratropium/Albuterol Neb [Duoneb] 3 ml IH TID #60 inhsol 02/14/17 [Rx] Levofloxacin [Levaquin] 750 mg PO DAILY #10 tablet 02/14/17 [Rx] Nicotine Patch [Nicoderm] 21 mg TD Q24H #30 patch.td24 02/14/17 [Rx] PredniSONE 40 mg PO DAILY #4 tablet 02/14/17 [Rx] Allergies/Adverse Reactions: Allergies codeine Allergy (Verified 06/27/15 19:28) Hives Penicillins Allergy (Verified 06/27/15 19:28) Hives Date of admission: 02/10/17 10:02 Primary care physician: Andrea Cruz MD - Patient Status Disposition: Home Health Service Condition: Good Functional capacity at discharge: uses cane/walker Overall status at discharge: patient is progressing back to baseline - Discharge Instructions Instructions: Prednisone (By mouth), Levofloxacin (By mouth), Ipratropium/ Albuterol (By breathing), How to Stop Smoking (GEN) Follow Up With: Andrea Cruz MD [Primary Care Provider] - 02/18/17 10:15 am Additional Instructions: Avoid all NSAIDs due to chronic renal failure. - Diet and Activity Activity: increase activity as tolerated Diet: low fat, low cholesterol, low salt diet Hospital course: Hospital presentation: Ms. Robertson is a 71 year old female with past medical history significant for diabetes, COPD, chronic tobacco abuse and chronic renal insufficiency who was brought to the hospital for confusion and lower abdominal pain. She has been having lower abdominal pain for 1 week, she was diagnosed with a UTI by her primary care physician and was started on treatment with Macrobid 3 days ago. She was able to take her tablets however she started developing dysuria and worsening, moderate, burning lower abdominal pain triggered by urination. She reports associated fevers and chills, this is confirmed by the patient's daughter who says the patient has been having more confusion over the last 3 days and fever on and off. She reports associated nausea, no vomiting or diarrhea. She reports daytime somnolence and feeling more depressed. Hospital course: The patient was diagnosed with severe sepsis. She was admitted to the medical service. She was treated with IV fluids and broad- spectrum IV antibiotics. She had blood cultures drawn which grew Escherichia coli multi-sensitive. She was further diagnosed with Escherichia coli transient bacteremia. She continued treatment with intravenous Levaquin. She has been afebrile for the last 3 days. She had repeat blood cultures which are preliminarily negative at 2 days today. She has a history of CKD and her creatinine was elevated from her baseline. It improved with IV fluids. Her creatinine was 2.7 on admission. Today is 0.9. I will hold her lisinopril on discharge due to acute kidney injury, this can be restarted at her next PCP or nephrology visit. She was advised to avoid NSAIDs. She had workup for anemia which revealed findings consistent with anemia of chronic disease, iron transferrin saturation and ferritin being within normal range. She was also diagnosed with mild COPD exacerbation during this admission. She was treated with prednisone and DuoNeb and she made a good clinical improvement. She received extensive counseling for smoking cessation. 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 Time spent discussing smoking cessation with patient: 3 to 10 minutes - Time Spent with Patient Total time spent providing and/or coordinating discharge services: Greater than 30 minutes (I have spent 45 minutes coronary minutes discharge.) - Constitutional Vitals: Temp Pulse Resp BP Pulse Ox 97.9 F 72 18 138/74 97 02/14/17 07:51 02/14/17 07:51 02/14/17 10:44 02/14/17 07:51 02/14/17 10:44 General appearance: Present: A&O X 3, no acute distress, obese - Respiratory Respiratory exam: Present: wheezes. Absent: accessory muscle use, rales, rhonchi - Cardiovascular Cardiovascular exam: Present: RRR, +S1, +S2. Absent: diastolic murmur, gallop, rubs, systolic murmur - GI/Abdominal GI/Abdominal exam: Present: normal bowel sounds, soft, no peritoneal signs. Absent: distended, tenderness - Neurological Exam Neurological exam: Present: CN II-XII intact, oriented X3, no focal deficits. Absent: pronater drift, facial droop, speech deficit
[2017-02-14] MEDS: Nicotine 21 MG PATCH.TD24 TD SCH (12:12)
--- NOTE | 2017-02-14 13:41 | Physician Discharge Referral ---
Home Health/Hosp Referral Info Transfer to: Home Health Provider in Charge Post Discharge: PCP - Diagnosis (1) Severe sepsis Priority: Primary Status: Acute (2) Chronic kidney disease, stage 3 Priority: Secondary Status: Acute (3) Anemia in chronic kidney disease Priority: Secondary Status: Acute (4) Tobacco abuse disorder Priority: Secondary Status: Acute (5) Tobacco abuse counseling Priority: Secondary Status: Acute (6) Acute kidney injury Priority: Secondary Status: Acute (7) COPD (chronic obstructive pulmonary disease) Priority: Secondary Status: Acute (8) Urinary tract infection Priority: Secondary Status: Acute (9) Coronary artery disease Priority: Secondary Status: Acute (10) History of CVA (cerebrovascular accident) Priority: Secondary Status: Acute (11) Acute metabolic encephalopathy Priority: Secondary Status: Acute - Respiratory Orders Smoking Cessation: Smoking cessation has been advised. For more information, call the [place] Tobacco Quit Line at 0-179-EWPJ-NOW. - Diet/Nutrition Diet/Nutrition Orders: No Added Salt (NANETTE), Cardiac - Activity Activity Orders: Walker - Services Needed Following services are medically necessary services: Nursing, Home Health Aide, Physical Therapy - Transfer Medications Prescriptions: Albuterol Neb [Proventil Neb] 2.5 mg IH Q6H PRN #30 inhsol PRN Reason: Shortness Of Breath/Wheezing Ipratropium/Albuterol Neb [Duoneb] 3 ml IH TID #60 inhsol Levofloxacin [Levaquin] 750 mg PO DAILY #10 tablet Nicotine Patch [Nicoderm] 21 mg TD Q24H #30 patch.td24 PredniSONE 40 mg PO DAILY #4 tablet Home Medications: Albuterol Sulfate [Proair Respiclick] 2 puff IH QID PRN 06/27/15 [History] Amlodipine Besylate [Norvasc] 10 mg PO DAILY 06/27/15 [History] Aspirin Enteric Coated [Aspirin EC] 81 mg PO DAILY 06/27/15 [History] Atorvastatin Calcium [Lipitor] 40 mg PO HS 06/27/15 [History] Clopidogrel [Plavix] 75 mg PO DAILY 06/27/15 [History] Docusate Sodium [Stool Softener] 100 mg PO BID PRN 06/27/15 [History] Famotidine [Pepcid] 20 mg PO BID 06/27/15 [History] Gabapentin [Neurontin] 300 mg PO BID 06/27/15 [History] HYDROcodone/Acet 5/325 mg [[place] 5-325 mg] 1 tab PO BID PRN #0 06/27/15 [ History] Ipratropium [ATROVENT Inhaler] 2 puff IH Q6H PRN #0 06/27/15 [History] Isosorbide MONOnitrate [Isosorbide Mononitrate ER] 30 mg PO DAILY 06/27/15 [ History] Loratadine [Loradamed] 10 mg PO DAILY 06/27/15 [History] Nitroglycerin [Nitrostat] 0.4 mg SL AD PRN #0 06/27/15 [History] [place]-3 Acid Ethyl Esters [Lovaza] 1 gm PO TID 06/27/15 [History] [place]-3/Dha/Epa/Fish Oil [Fish Oil 1,000 mg Softgel] 1,000 mg PO TID #0 [History] Polyethylene Glycol 3350 [Purelax] 17 gm PO DAILY PRN #0 06/27/15 [History] Esomeprazole Magnesium [Nexium] 40 mg PO DAILY #0 06/28/15 [History] Budesonide/Formoterol 160/4.5 [Symbicort 160/4.5] 2 puff IH BIDR 02/10/17 [ History] Calcium Carbonate/Vitamin D3 [Calcium 500-Vit D3 200 Caplet] 1 tab PO DAILY [History] Carvedilol [Coreg] 6.25 mg PO BIDWM 02/10/17 [History] Ergocalciferol (VITAMIN D2) [Vitamin D2] 50,000 unit PO QWEEK 02/10/17 [History] Guaifenesin [Siltussin SA] 200 mg PO Q6H PRN 02/10/17 [History] Melatonin 3 mg PO HS PRN 02/10/17 [History] Mirtazapine [Remeron] 7.5 mg PO HS 02/10/17 [History] Nitrofurantoin Monohyd/M-Cryst [Macrobid 100 mg Capsule] 100 mg PO BID 02/10/17 [History] Albuterol Neb [Proventil Neb] 2.5 mg IH Q6H PRN #30 inhsol 02/14/17 [Rx] Ipratropium/Albuterol Neb [Duoneb] 3 ml IH TID #60 inhsol 02/14/17 [Rx] Levofloxacin [Levaquin] 750 mg PO DAILY #10 tablet 02/14/17 [Rx] Nicotine Patch [Nicoderm] 21 mg TD Q24H #30 patch.td24 02/14/17 [Rx] PredniSONE 40 mg PO DAILY #4 tablet 02/14/17 [Rx] Allergies/Adverse Reactions: Allergies codeine Allergy (Verified 06/27/15 19:28) Hives Penicillins Allergy (Verified 06/27/15 19:28) Hives Certification: Further, I certify that my clinical findings support that this patient is homebound (i.e. absences from home require considerable and taxing effort and are for medical reasons or [employer] services or infrequently or short duration when for other reasons) because: Homebound Reason: Patient requires assistance of a person or device to safely leave home, Leaving home requires considerable and taxing effort due to condition, Severity of cardiac or pulmonary status limits activity tolerance Attestation: My signature below is to certify that this patient is under my care and that I, or nurse practitioner, or a physician's credit control assistant working with me, has a face-to -face encounter with this patient.
== END 2017-02-14 13:54 | disposition home health service (06) | DRG 871 ==
LOC: 3BNU 04:04 → EMEROO 04:04 → 2ANU 08:21 → SUATTDRO 10:02 → 2ANU 12:57
PROVIDERS: ADMIT Internal Medicine; ATTEND Internal Medicine

== ENCOUNTER 2019-07-30 17:48 | Observation (INO) ==
--- NOTE | 2019-07-30 17:51 | Emergency Department Note ---
Disposition Clinical Impression: Chest pain Qualifiers: Chest pain type: unspecified Qualified Code(s): R07.9 - Chest pain, unspecified Disposition: Admitted As Inpatient Condition: Fair Time of Disposition: 20:48 General Adult HPI - General Stated complaint: chest pain Time Seen by Provider: 07/30/19 17:50 Nursing Notes Reviewed: Yes Vital Signs Reviewed: Yes - History of Present Illness HPI Narrative: 74-year-old female presents emergency Department with right-sided chest pain. Patient states that she was seeing her from her refrigerator crater. Agents stated it started this morning. As sharp in nature, but radiates down both arms. Patient also reported some intermittent dizziness and room spinning sensation. Patient reports that his chest pain free right now. Also reports that her dizziness has resolved. Denies any fevers, nausea, vomiting, diaphoresis, abdominal pain. - Related Data Home Medications Medication Instructions Recorded Confirmed Albuterol Sulfate [Proair 2 puff IH QID PRN 06/27/15 11/06/18 Respiclick] Aspirin Enteric Coated [Aspirin EC] 81 mg PO DAILY 06/27/15 11/06/18 Atorvastatin Calcium [Lipitor] 40 mg PO HS 06/27/15 11/06/18 Clopidogrel [Plavix] 75 mg PO DAILY 06/27/15 11/06/18 Gabapentin [Neurontin] 300 mg PO BID 06/27/15 11/06/18 HYDROcodone/Acet 5/325 mg [[place] 1 tab PO BID PRN #0 06/27/15 11/06/18 5-325 mg] Isosorbide MONOnitrate [Isosorbide 30 mg PO DAILY 06/27/15 11/06/18 Mononitrate ER] Loratadine [Loradamed] 10 mg PO DAILY 06/27/15 11/06/18 Nitroglycerin [Nitrostat] 0.4 mg SL AD PRN #0 06/27/15 11/06/18 [place]-3/Dha/Epa/Fish Oil [Fish Oil 1,000 mg PO TID #0 06/27/15 11/06/18 1,000 mg Softgel] Calcium Carbonate/Vitamin D3 1 tab PO DAILY 02/10/17 11/06/18 [Calcium 500-Vit D3 200 Caplet] Benzonatate [Tessalon] 200 mg PO BID PRN 10/04/17 11/06/18 Esomeprazole Magnesium [Nexium] 20 mg PO BID 10/04/17 11/06/18 Melatonin 3 mg PO HS 10/04/17 11/06/18 Mirtazapine [Remeron] 7.5 mg PO HS 10/04/17 11/06/18 Polyethylene Glycol 3350 [MiraLAX] 17 gm PO DAILY 10/04/17 11/06/18 Carvedilol [Coreg] 6.25 mg PO BIDWM 02/17/18 11/06/18 Ipratropium/Albuterol Neb [Duoneb] 3 ml IH TID 02/17/18 11/06/18 Ranitidine HCl [Zantac] 300 mg PO DAILY 02/17/18 11/06/18 Buspirone HCl [Buspar] 10 mg PO BID 11/06/18 11/06/18 Ergocalciferol (VITAMIN D2) 50,000 unit PO QWEEK 11/06/18 11/06/18 [Vitamin D2] Previous Rx's Medication Instructions Recorded Ipratropium/Albuterol Neb [Duoneb] 3 ml IH TID #60 inhsol 02/14/17 Allergies Allergy/AdvReac Type Severity Reaction Status Date / Time codeine Allergy Hives Verified 02/17/18 12:08 Penicillins Allergy Hives Verified 02/17/18 12:08 Sodium Phosphate AdvReac Vomiting Verified 02/17/18 12:08 [From [employer]] All systems ED: reviewed and negative except as stated. Review of Systems: As Per HPI Constitutional: Denies: fever Cardiovascular: Reports: chest pain Respiratory: Denies: cough, dyspnea Gastrointestinal: Denies: abdominal pain, nausea, vomiting Genitourinary: Denies: dysuria Musculoskeletal: Denies: back pain Past Medical History - Past Medical History Attestation: Yes The following information was validated with the patient. Medical history: Reports: COPD, coronary artery disease, CVA, DVT, diabetes, GERD, hyperlipidemia, hypertension, myocardial infarction, peripheral artery disease, renal disease, TIA Surgical history: Reports: appendectomy, cholecystectomy, knee replacement Psychiatric history: Reports: no psych history - Social History Smoking Status: Current every day smoker Smokeless Tobacco Status: No Alcohol use: Reports: none Drug use: Reports: none Physical Exam - General Limitations: no limitations General appearance: alert, in no apparent distress - Head Head exam: normocephalic - Eye Eye exam: Present: EOMI - ENT ENT exam: mucous membranes moist - Neck Neck exam: Present: trachea midline - Chest Chest inspection: Present: symmetric chest wall rise - Respiratory Respiratory exam: Present: normal lung sounds bilaterally. Absent: respiratory distress, accessory muscle use - Cardiovascular Cardiovascular exam: Present: regular rate, normal rhythm, normal heart sounds - Abdominal Exam Abdominal exam: Present: soft, Non-Tender. Absent: distention, guarding, rebound - Extremities Exam Extremities exam: Present: normal capillary refill - Back Exam Back exam: Present: full ROM - Neurological Exam Neurological exam: Present: alert, oriented X3 - Psychiatric Psychiatric exam: Present: normal affect, normal mood - Skin Skin exam: Present: warm, dry, intact, normal color. Absent: rash Course Vital Signs Temperature 98.3 F 07/30/19 17:53 Pulse Rate 69 07/30/19 17:53 Respiratory Rate 17 07/30/19 17:53 Blood Pressure 135/72 07/30/19 17:53 O2 Sat by Pulse Oximetry 99 07/30/19 17:53 Temperature 98.3 F 07/30/19 17:53 Pulse Rate 65 07/30/19 20:36 Respiratory Rate 18 07/30/19 20:36 Blood Pressure 144/70 07/30/19 20:37 O2 Sat by Pulse Oximetry 98 07/30/19 20:36 Oxygen Delivery Oxygen Delivery Room Air Medical Decision Making - [facility] Narrative Medical decision making narrative: 74-year-old female with right-sided chest pain. ECG does not reveal any ischemic ST changes. Troponin negative. Head CT was within normal limits. Patient is evidence of possible pneumonitis on chest x-ray. Patient is a long, smoker and does have COPD. She was given DuoNeb so steroids here in the emergency department. Was on a respiratory distress. Also given azithromycin as well. Patient medically stable at time of admission. Chest X-Ray 07/30/19 17:51 IMPRESSION: Pulmonary fibrosis. Superimposed acute interstitial process (i.e. Acute interstitial pneumonitis) is a consideration. No dense consolidation. Sequela from old granulomatous disease. D/ / Tray Fuentes / Tray Fuentes Interpreting Provider: Tray Fuentes Head CT 07/30/19 18:35 IMPRESSION: No acute intracranial abnormality. D/ / Deshawn Chin MD / Deshawn Chin MD Interpreting Provider: Deshawn Chin MD - Lab Data Result diagrams: 07/30/19 18:00 07/30/19 18:00 Lab Results 07/30/19 07/30/19 07/30/19 Range/Units 18:00 18:00 18:00 WBC 5.3 (4.3-11.1) K/mcL RBC 3.27 L (3.82-4.97) M/mcL Hgb 10.5 L (11.5-15.4) g/dL Hct 31.3 L (35.3-44.9) % MCV 95.7 (83.0-100.0) fL MCH 32.1 (28.0-33.3) pg MCHC 33.5 (31.6-35.5) g/dL RDW 13.8 (11.5-14.5) % Plt Count 175 (140-400) K/mcL MPV 9.1 L (9.4-12.4) fL Immature Gran % 0.4 (0-4) % Seg Neutrophils % 46.6 % Lymphocytes % 42.1 % Monocytes % 6.5 % Eosinophils % 3.8 % Basophils % 0.6 % Neutrophils # 2.5 (1.6-8.9) K/mcL Lymphocytes # 2.2 (0.6-4.6) K/mcL Monocytes # 0.3 (0.0-1.3) K/mcL Eosinophils # 0.2 (0.0-0.6) K/mcL Basophils # 0.0 (0.0-0.2) K/mcL PT 10.0 (9.4-12.1) Seconds INR 0.9 APTT 32.9 (26.0-36.0) Seconds Sodium (136-145) mEq/L Potassium (3.5-5.1) mEq/L Chloride (98-107) mEq/L Carbon Dioxide (23-29) mEq/L BUN (8-23) mg/dL Creatinine (0.60-1.20) mg/dL Est GFR ( Amer) (> 60) Est GFR (Non-Af Amer) (> 60) BUN/Creatinine Ratio (6-26) Glucose (70-105) mg/dL Calculated Osmolality (280-300) Calcium (8.6-10.3) mg/dL Troponin I (< 0.04) ng/mL B-Natriuretic Peptide 64 (Less than 100) pg/mL 07/30/19 Range/Units 18:00 WBC (4.3-11.1) K/mcL RBC (3.82-4.97) M/mcL Hgb (11.5-15.4) g/dL Hct (35.3-44.9) % MCV (83.0-100.0) fL MCH (28.0-33.3) pg MCHC (31.6-35.5) g/dL RDW (11.5-14.5) % Plt Count (140-400) K/mcL MPV (9.4-12.4) fL Immature Gran % (0-4) % Seg Neutrophils % % Lymphocytes % % Monocytes % % Eosinophils % % Basophils % % Neutrophils # (1.6-8.9) K/mcL Lymphocytes # (0.6-4.6) K/mcL Monocytes # (0.0-1.3) K/mcL Eosinophils # (0.0-0.6) K/mcL Basophils # (0.0-0.2) K/mcL PT (9.4-12.1) Seconds INR APTT (26.0-36.0) Seconds Sodium 137 (136-145) mEq/L Potassium 3.6 (3.5-5.1) mEq/L Chloride 104 (98-107) mEq/L Carbon Dioxide 24 (23-29) mEq/L BUN 21 (8-23) mg/dL Creatinine 1.20 (0.60-1.20) mg/dL Est GFR ( Amer) 53 L (> 60) Est GFR (Non-Af Amer) 44 L (> 60) BUN/Creatinine Ratio 18 (6-26) Glucose 118 H (70-105) mg/dL Calculated Osmolality 288 (280-300) Calcium 9.1 (8.6-10.3) mg/dL Troponin I < 0.03 (< 0.04) ng/mL B-Natriuretic Peptide (Less than 100) pg/mL - EKG Data EKG #1 EKG attestation: Yes I reviewed and interpreted this EKG. EKG results narrative: 1800 Heart rate 64 bpm, FL interval 158 ms, QRS scientology 101 ms, QTC 406 months seconds, normal axis. Sinus rhythm no ischemic ST changes.
[2019-07-30 18:12] LABS: Basophils % 0.6 %; Eosinophils # 0.2 K/mcL (0.0-0.6); Eosinophils % 3.8 %; Hematocrit 31.3 % (35.3-44.9); Hemoglobin 10.5 g/dL (11.5-15.4); Immature Granulocytes % 0.4 % (0-4); Lymphocytes # 2.2 K/mcL (0.6-4.6); Lymphocytes % 42.1 %; Mean Corpuscular HGB Conc 33.5 g/dL (31.6-35.5); Mean Corpuscular Hemoglobin 32.1 pg (28.0-33.3); Mean Corpuscular Volume 95.7 fL (83.0-100.0); Mean Platelet Volume 9.1 fL (9.4-12.4); Monocytes # 0.3 K/mcL (0.0-1.3); Monocytes % 6.5 %; Neutrophils # 2.5 K/mcL (1.6-8.9); Platelet Count 175 K/mcL (140-400); Red Blood Count 3.27 M/mcL (3.82-4.97); Red Cell Distribution Width 13.8 % (11.5-14.5); Segmented Neutrophils % 46.6 %; White Blood Count 5.3 K/mcL (4.3-11.1)
--- NOTE | 2019-07-30 18:12 | Emergency Department Note ---
Disposition Clinical Impression: Chest pain Qualifiers: Chest pain type: unspecified Qualified Code(s): R07.9 - Chest pain, unspecified Disposition: Admitted As Inpatient Condition: Fair Time of Disposition: 19:18 General Adult HPI - General Chief complaint: ED Chest Pain Stated complaint: chest pain Time Seen by Provider: 07/30/19 17:50 Nursing Notes Reviewed: Yes Vital Signs Reviewed: Yes - History of Present Illness Pain Scale: 0 - Related Data Home Medications Medication Instructions Recorded Confirmed Albuterol Sulfate [Proair 2 puff IH QID PRN 06/27/15 11/06/18 Respiclick] Aspirin Enteric Coated [Aspirin EC] 81 mg PO DAILY 06/27/15 11/06/18 Atorvastatin Calcium [Lipitor] 40 mg PO HS 06/27/15 11/06/18 Clopidogrel [Plavix] 75 mg PO DAILY 06/27/15 11/06/18 Gabapentin [Neurontin] 300 mg PO BID 06/27/15 11/06/18 HYDROcodone/Acet 5/325 mg [[place] 1 tab PO BID PRN #0 06/27/15 11/06/18 5-325 mg] Isosorbide MONOnitrate [Isosorbide 30 mg PO DAILY 06/27/15 11/06/18 Mononitrate ER] Loratadine [Loradamed] 10 mg PO DAILY 06/27/15 11/06/18 Nitroglycerin [Nitrostat] 0.4 mg SL AD PRN #0 06/27/15 11/06/18 [place]-3/Dha/Epa/Fish Oil [Fish Oil 1,000 mg PO TID #0 06/27/15 11/06/18 1,000 mg Softgel] Calcium Carbonate/Vitamin D3 1 tab PO DAILY 02/10/17 11/06/18 [Calcium 500-Vit D3 200 Caplet] Benzonatate [Tessalon] 200 mg PO BID PRN 10/04/17 11/06/18 Esomeprazole Magnesium [Nexium] 20 mg PO BID 10/04/17 11/06/18 Melatonin 3 mg PO HS 10/04/17 11/06/18 Mirtazapine [Remeron] 7.5 mg PO HS 10/04/17 11/06/18 Polyethylene Glycol 3350 [MiraLAX] 17 gm PO DAILY 10/04/17 11/06/18 Carvedilol [Coreg] 6.25 mg PO BIDWM 02/17/18 11/06/18 Ipratropium/Albuterol Neb [Duoneb] 3 ml IH TID 02/17/18 11/06/18 Ranitidine HCl [Zantac] 300 mg PO DAILY 02/17/18 11/06/18 Buspirone HCl [Buspar] 10 mg PO BID 11/06/18 11/06/18 Ergocalciferol (VITAMIN D2) 50,000 unit PO QWEEK 11/06/18 11/06/18 [Vitamin D2] Previous Rx's Medication Instructions Recorded Ipratropium/Albuterol Neb [Duoneb] 3 ml IH TID #60 inhsol 02/14/17 Allergies Allergy/AdvReac Type Severity Reaction Status Date / Time codeine Allergy Hives Verified 02/17/18 12:08 Penicillins Allergy Hives Verified 02/17/18 12:08 Sodium Phosphate AdvReac Vomiting Verified 02/17/18 12:08 [From [employer]] Past Medical History - Past Medical History Medical history: Reports: COPD, coronary artery disease, CVA, DVT, diabetes, GERD, hyperlipidemia, hypertension, myocardial infarction, peripheral artery disease, renal disease, TIA Surgical history: Reports: appendectomy, cholecystectomy, knee replacement Psychiatric history: Reports: no psych history - Social History Smoking Status: Current every day smoker Smokeless Tobacco Status: No Alcohol use: Reports: none Drug use: Reports: none Physical Exam - General General appearance: alert, in no apparent distress Course Vital Signs Temperature 98.3 F 07/30/19 17:53 Pulse Rate 69 07/30/19 17:53 Respiratory Rate 17 07/30/19 17:53 Blood Pressure 135/72 07/30/19 17:53 O2 Sat by Pulse Oximetry 99 07/30/19 17:53 Temperature 98.3 F 07/30/19 17:53 Pulse Rate 65 07/30/19 20:36 Respiratory Rate 18 07/30/19 20:36 Blood Pressure 144/70 07/30/19 20:37 O2 Sat by Pulse Oximetry 98 07/30/19 20:36 Oxygen Delivery Oxygen Delivery Room Air Medical Decision Making - Lab Data Result diagrams: 07/30/19 18:00 07/30/19 18:00 Lab Results 09/08/0907/30/19 07/30/19 Range/Units 18:00 18:00 18:00 WBC 5.3 (4.3-11.1) K/mcL RBC 3.27 L (3.82-4.97) M/mcL Hgb 10.5 L (11.5-15.4) g/dL Hct 31.3 L (35.3-44.9) % MCV 95.7 (83.0-100.0) fL MCH 32.1 (28.0-33.3) pg MCHC 33.5 (31.6-35.5) g/dL RDW 13.8 (11.5-14.5) % Plt Count 175 (140-400) K/mcL MPV 9.1 L (9.4-12.4) fL Immature Gran % 0.4 (0-4) % Seg Neutrophils % 46.6 % Lymphocytes % 42.1 % Monocytes % 6.5 % Eosinophils % 3.8 % Basophils % 0.6 % Neutrophils # 2.5 (1.6-8.9) K/mcL Lymphocytes # 2.2 (0.6-4.6) K/mcL Monocytes # 0.3 (0.0-1.3) K/mcL Eosinophils # 0.2 (0.0-0.6) K/mcL Basophils # 0.0 (0.0-0.2) K/mcL PT 10.0 (9.4-12.1) Seconds INR 0.9 APTT 32.9 (26.0-36.0) Seconds Sodium (136-145) mEq/L Potassium (3.5-5.1) mEq/L Chloride (98-107) mEq/L Carbon Dioxide (23-29) mEq/L BUN (8-23) mg/dL Creatinine (0.60-1.20) mg/dL Est GFR ( Amer) (> 60) Est GFR (Non-Af Amer) (> 60) BUN/Creatinine Ratio (6-26) Glucose (70-105) mg/dL Calculated Osmolality (280-300) Calcium (8.6-10.3) mg/dL Troponin I (< 0.04) ng/mL B-Natriuretic Peptide 64 (Less than 100) pg/mL 07/30/19 Range/Units 18:00 WBC (4.3-11.1) K/mcL RBC (3.82-4.97) M/mcL Hgb (11.5-15.4) g/dL Hct (35.3-44.9) % MCV (83.0-100.0) fL MCH (28.0-33.3) pg MCHC (31.6-35.5) g/dL RDW (11.5-14.5) % Plt Count (140-400) K/mcL MPV (9.4-12.4) fL Immature Gran % (0-4) % Seg Neutrophils % % Lymphocytes % % Monocytes % % Eosinophils % % Basophils % % Neutrophils # (1.6-8.9) K/mcL Lymphocytes # (0.6-4.6) K/mcL Monocytes # (0.0-1.3) K/mcL Eosinophils # (0.0-0.6) K/mcL Basophils # (0.0-0.2) K/mcL PT (9.4-12.1) Seconds INR APTT (26.0-36.0) Seconds Sodium 137 (136-145) mEq/L Potassium 3.6 (3.5-5.1) mEq/L Chloride 104 (98-107) mEq/L Carbon Dioxide 24 (23-29) mEq/L BUN 21 (8-23) mg/dL Creatinine 1.20 (0.60-1.20) mg/dL Est GFR ( Amer) 53 L (> 60) Est GFR (Non-Af Amer) 44 L (> 60) BUN/Creatinine Ratio 18 (6-26) Glucose 118 H (70-105) mg/dL Calculated Osmolality 288 (280-300) Calcium 9.1 (8.6-10.3) mg/dL Troponin I < 0.03 (< 0.04) ng/mL B-Natriuretic Peptide (Less than 100) pg/mL Attestation Statement - Attestation Attestation: I examined this patient and my medical decision-making was reviewed with the Resident Physician. I agree with the documented findings, disposition and treatment plan as described except to the extent set forth below. Patient to ED with chest pain. Symptom since yesterday. Brought in by family. She developed some lightheadedness. Arm numbness. Leg weakness. Symptoms almost resolved. History of coronary disease. On exam she is in no distress. No nystagmus. 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 Heart regular lungs are clear. Plan. Cardiac workup. Head CT. EKG reviewed with the resident with no acute ischemic changes. Labs reviewed. Patient has a chest x-ray that shows an acute interstitial process. We will treat with antibiotic. Admitted to medicine. Chest X-Ray 07/30/19 17:51 IMPRESSION: Pulmonary fibrosis. Superimposed acute interstitial process (i.e. Acute interstitial pneumonitis) is a consideration. No dense consolidation. Sequela from old granulomatous disease. D/ / Tray Fuentes / Tray Fuentes Interpreting Provider: Tray Fuentes Head CT 07/30/19 18:35 IMPRESSION: No acute intracranial abnormality. D/ / Deshawn Chin MD / Deshawn Chin MD Interpreting Provider: Deshawn Chin MD
[2019-07-30] MEDS ORDERED: Aspirin 81 MG TAB.CHEW PO STA (18:13)
[2019-07-30 18:23] LABS: INR 0.9
[2019-07-30 18:25] LABS: Activated Partial Thrombo Time 32.9 Seconds (26.0-36.0)
[2019-07-30 18:33] LABS: BUN/Creatinine Ratio 18 (6-26); Blood Urea Nitrogen 21 mg/dL (8-23); Calcium 9.1 mg/dL (8.6-10.3); Carbon Dioxide 24 mEq/L (23-29); Chloride 104 mEq/L (98-107); Glucose 118 mg/dL (70-105); Osmolality,Calculated 288 (280-300); Potassium 3.6 mEq/L (3.5-5.1); Sodium 137 mEq/L (136-145); eGFR For African Americans 53 (> 60); eGFR For Non-African Americans 44 (> 60)
[2019-07-30 18:34] LABS: Troponin I < 0.03 ng/mL (< 0.04)
[2019-07-30] MEDS ORDERED: Azithromycin 500 MG in 0.9 % Sodium Chloride 250 ML IVPB ONE (19:18)
[2019-07-30] MEDS ORDERED: predniSONE 20 MG TABLET PO ONE (19:35)
[2019-07-30] MEDS ORDERED: Ipratropium/Albuterol Neb 3 ML IH ONE (19:35)
[2019-07-31] MEDS ORDERED: Naloxone 0.4 MG/ML INJ IVP PRN (02:26)
[2019-07-31] MEDS ORDERED: Albuterol 2.5 MG/3 ML NEBULIZER IH PRN (02:31)
[2019-07-31] MEDS ORDERED: Dextrose Gel 15 GM/37.5 ML TUBE PO PRN ×2 (02:33)
[2019-07-31] MEDS ORDERED: D5% in Water 1,000 ML IVC PRN (02:33)
[2019-07-31] MEDS ORDERED: *HR* Dextrose 50 % in Water (Syg) 50 ML SYRINGE IVP PRN (02:33)
--- NOTE | 2019-07-31 03:32 | Internal Med History&Physical ---
Date of Encounter: 07/30/19 Time of Encounter: 23:35 Internal Medicine - H&P: HPI Chief complaint: Chest pain Admitted From: Emergency Dept Plans for Post Hospital Care: Home History of present illness: Ms. Robertson is a 74 year old female Patient presented to the emergency department for chest pain. She states that she has been having chest pain on and off, centrally located in the middle of her chest that does not radiate. She also develops numbness in her arms and gets leg cramps. She had an episode of chest pain yesterday, but it resolved on its own. 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 She had a previous episode about 2 weeks ago where she had an episode of chest pain that required 3 nitroglycerin tablets to alleviate the pain. She did not come to the hospital at that time because she had "some other things going on." She has had some stress at home including the recent passing of one of her grandchildren. She took some aspirin prior to coming to the ER today. Emergency department vital signs within normal limits CBC within normal limits, patient has a history of anemia, hemoglobin 10.5 which is around patient's baseline. BMP unremarkable. Initial troponin undetectable BNP 64 INR 0.9. Chest x-ray showed pulmonary fibrosis with superimposed acute interstitial process, possibly pneumonitis. There is no dense consolidation however. Head CT showed no acute intracranial abnormality. EKG: Sinus rhythm, rate 64, QTC 406ms. No ST elevations noted. In the emergency department patient received 162 mg of aspirin, azithromycin IV, breathing treatments and oral prednisone. She was admitted to the hospital for further management. Upon my evaluation, patient is resting comfortably in hospital bed. She denies chest pain, abdominal pain, nausea, vomiting, diarrhea and constipation. She is a heavy smoker, 2 packs per day. She denies alcohol and other drugs however. She has significant family medical history of heart disease in her mother, father and sister. She is a full code. Past Med Surg Social Fam HX - Past Medical History Medical history: COPD, coronary artery disease, CVA, DVT, diabetes, GERD, hyperlipidemia, hypertension, myocardial infarction, peripheral artery disease, renal disease, TIA Additional medical history: Chronic back pain, migraines, chronic knee pain, Psychiatric history: no psych history - Past Surgical History Surgical History: appendectomy, cholecystectomy Additional surgical history: Knee surgery, cardiac stents - Social History Smoking Status: Current every day smoker Packs per day: 2 Smokeless Tobacco Status: No Alcohol use: none Drug use: none - Family History Father Adopted: No Family Member Ethnicity: Non- Living Status: Hx Family Cardiac Disorders: Yes Hx Family Respiratory Disorders: Yes Hx Family Cancer: Yes Hx Family GI Disorders: No Hx Family Endocrine Disorder: No Hx Family Neuromuscular Disorders: Yes Hx Family Neurologic Disorders: Yes Hx Family HEENT Disorders: No Hx Family Autoimmune Disorders: No Internal Medicine - H&P: Meds Albuterol Sulfate [Proair Respiclick] 2 puff IH QID PRN 06/27/15 [History] Aspirin Enteric Coated [Aspirin EC] 81 mg PO DAILY 06/27/15 [History] Atorvastatin Calcium [Lipitor] 40 mg PO HS 06/27/15 [History] Clopidogrel [Plavix] 75 mg PO DAILY 06/27/15 [History] Gabapentin [Neurontin] 300 mg PO BID 06/27/15 [History] HYDROcodone/Acet 5/325 mg [[place] 5-325 mg] 1 tab PO BID PRN #0 06/27/15 [History] Isosorbide MONOnitrate [Isosorbide Mononitrate ER] 30 mg PO DAILY 06/27/15 [History] Loratadine [Loradamed] 10 mg PO DAILY 06/27/15 [History] Nitroglycerin [Nitrostat] 0.4 mg SL AD PRN #0 06/27/15 [History] [place]-3/Dha/Epa/Fish Oil [Fish Oil 1,000 mg Softgel] 1,000 mg PO TID #0 06/27/15 [History] Calcium Carbonate/Vitamin D3 [Calcium 500-Vit D3 200 Caplet] 1 tab PO DAILY 02/10/17 [History] Ipratropium/Albuterol Neb [Duoneb] 3 ml IH TID #60 inhsol 02/14/17 [Rx] Benzonatate [Tessalon] 200 mg PO BID PRN 10/04/17 [History] Esomeprazole Magnesium [Nexium] 20 mg PO BID 10/04/17 [History] Melatonin 3 mg PO HS 10/04/17 [History] Mirtazapine [Remeron] 7.5 mg PO HS 10/04/17 [History] Polyethylene Glycol 3350 [MiraLAX] 17 gm PO DAILY 10/04/17 [History] Carvedilol [Coreg] 6.25 mg PO BIDWM 02/17/18 [History] Ipratropium/Albuterol Neb [Duoneb] 3 ml IH TID 02/17/18 [History] Ranitidine HCl [Zantac] 300 mg PO DAILY 02/17/18 [History] Buspirone HCl [Buspar] 10 mg PO BID 11/06/18 [History] Ergocalciferol (VITAMIN D2) [Vitamin D2] 50,000 unit PO QWEEK 11/06/18 [History] Allergy/AdvReac Type Severity Reaction Status Date / Time Apple Allergy See Verified 07/30/19 22:16 Comments codeine Allergy Hives Verified 02/17/18 12:08 [place] Allergy Hives Verified 07/30/19 22:16 Penicillins Allergy Hives Verified 02/17/18 12:08 Sodium Phosphate AdvReac Vomiting Verified 02/17/18 12:08 [From Fleet Enema] All Systems PM: A 10-system review of systems was performed and is negative for pertinent findings except as documented above in the HPI. - Constitutional Vitals: Temp Pulse Resp BP Pulse Ox 97.6 F 67 16 159/75 94 07/30/19 21:01 07/30/19 21:01 07/30/19 21:01 07/30/19 21:01 07/30/19 21:01 General appearance: Present: cooperative, A&O X 3, pleasant, no acute distress, answers questions appropriately Exam: - - Head Head exam: Present: normal inspection - Eye Eye exam: Present: EOMI, normal appearance - Respiratory Respiratory exam: Present: CTAB. Absent: rales, respiratory distress, rhonchi, wheezes - Cardiovascular Cardiovascular exam: Present: RRR. Absent: diastolic murmur, systolic murmur - GI/Abdominal GI/Abdominal exam: Present: normal bowel sounds, soft. Absent: tenderness - Extremities Exam Extremities exam: Present: warm, radial pulses palpable and symmetrical. Absent: calf tenderness, pedal edema, tenderness - Neurological Exam Neurological exam: Present: no focal deficits, strengths equal and symetr throughout. Absent: motor sensory deficit, facial droop, speech deficit - Skin Skin exam: Present: dry, normal color, warm Internal Med - H&P Results - Labs CBC & Chem 7: 07/30/19 18:00 07/30/19 18:00 Labs: Short CBC 07/30/19 Range/Units 18:00 WBC 5.3 (4.3-11.1) K/mcL Hgb 10.5 L (11.5-15.4) g/dL Hct 31.3 L (35.3-44.9) % Plt Count 175 (140-400) K/mcL Neutrophils # 2.5 (1.6-8.9) K/mcL BMP 07/30/19 18:00 Sodium 137 Potassium 3.6 Chloride 104 Carbon Dioxide 24 BUN 21 Creatinine 1.20 Glucose 118 H Calcium 9.1 Cardiac Enzymes 07/30/19 07/31/19 Range/Units 18:00 00:22 Troponin I < 0.03 < 0.03 (< 0.04) ng/mL - Impressions ITS Impressions Chest X-Ray 07/30/19 17:51 IMPRESSION: Pulmonary fibrosis. Superimposed acute interstitial process (i.e. Acute interstitial pneumonitis) is a consideration. No dense consolidation. Sequela from old granulomatous disease. D/ / Tray Fuentes / Tray Fuentes Interpreting Provider: Tray Fuentes Head CT 07/30/19 18:35 IMPRESSION: No acute intracranial abnormality. D/ / Deshawn Chin MD / Deshawn Chin MD Interpreting Provider: Deshawn Chin MD - Assessment and Plan (1) Chest pain Current Visit: Yes Status: Acute Assessment and plan: Chest pain now resolved, EKG nonischemic. Negative troponins 2. Continue to trend troponin Cardiac telemetry Echocardiogram in the morning Qualifiers: Chest pain type: unspecified Qualified Code(s): R07.9 - Chest pain, unspecified (2) COPD (chronic obstructive pulmonary disease) Current Visit: No Status: Acute Assessment and plan: Patient has significant history of smoking. She was given breathing treatments in the emergency department. Continue IV azithromycin Continue breathing treatments Continue oral prednisone Qualifiers: COPD type: chronic bronchitis Chronic bronchitis type: simple Qualified Code(s): J41.0 - Simple chronic bronchitis (3) Tobacco abuse disorder Current Visit: No Status: Acute Assessment and plan: Nicotine patch (4) Anemia Current Visit: No Status: Chronic Assessment and plan: Patient has chronic anemia, currently hemoglobin at baseline. No signs of bleeding. Continue to monitor Repeat a.m. labs Qualifiers: Anemia type: unspecified type Qualified Code(s): D64.9 - Anemia, unspecified (5) DVT prophylaxis Current Visit: Yes Status: Acute Assessment and plan: Subcutaneous heparin - Time Spent With Patient Total time spent is greater than 50% in coordination of care (as documented) at patient's floor/unit and/or counseling patient: Greater than 35 minutes
[2019-07-31] MEDS: Nicotine 21 MG PATCH.TD24 TD SCH (03:42)
[2019-07-31] MEDS: Ipratropium/Albuterol Neb 3 ML IH SCH ×4 (04:32→22:30)
[2019-07-31] MEDS: *HR* Heparin 5,000 UNIT/ML VIAL SQ SCH ×2 (04:56→17:53)
[2019-07-31] MEDS: Insulin LISPRO 300 UNITS/3 ML VIAL SQ SCH ×3 (06:27→17:41)
[2019-07-31 06:55] LABS: Hematocrit 30.1 % (35.3-44.9); Hemoglobin 10.3 g/dL (11.5-15.4); Mean Corpuscular HGB Conc 34.2 g/dL (31.6-35.5); Mean Corpuscular Hemoglobin 32.8 pg (28.0-33.3); Mean Corpuscular Volume 95.9 fL (83.0-100.0); Mean Platelet Volume 9.3 fL (9.4-12.4); Platelet Count 159 K/mcL (140-400); Red Blood Count 3.14 M/mcL (3.82-4.97); Red Cell Distribution Width 13.8 % (11.5-14.5); White Blood Count 3.6 K/mcL (4.3-11.1)
[2019-07-31 07:15] LABS: Potassium 3.9 mEq/L (3.5-5.1)
[2019-07-31] MEDS ORDERED: Regadenoson 0.4 MG/5 ML SYRINGE IVP ONE (09:15)
--- NOTE | 2019-07-31 09:50 | Event Note ---
Date of Encounter: 07/31/19 Time of Encounter: 09:47 Ms. Robertson is a 74 year old female Patient presented to the emergency department for chest pain. She states that she has been having chest pain on and off, centrally located in the middle of her chest that does not radiate. She also develops numbness in her arms and gets leg cramps. She had an episode of chest pain yesterday, but it resolved on its own. When her daughter found out about these episodes, she contacted the patient's population geneticist who recommended she come to the emergency department for further evaluation. She had a previous episode about 2 weeks ago where she had an episode of chest pain that required 3 nitroglycerin tablets to alleviate the pain. She did not come to the hospital at that time because she had "some other things going on." She has had some stress at home including the recent passing of one of her grandchildren. She took some aspirin prior to coming to the ER. She is seen and examined in the room, she reported absence of chest pain, palpitation, or lightheadedness. She reported cough with whitish mucus and dyspnea on exertion occasionally. Chest x-ray showed pulmonary fibrosis, superimposed acute interstitial process is possible, no dense consolidation, and sequela from granulomatosis disease. Troponin was negative 3, pending echocardiogram and stress nuclear test. Continue treatment for pulmonary fibrosis including bronchodilators and oral steroids. Continue empirical IV antibiotics for possible infection.
--- NOTE | 2019-07-31 13:48 | Internal Med Progress Note ---
Hospitalist Progress Note - Encounter Date of Encounter: 07/31/19 Time of Encounter: 13:47 - Subjective Interval History: Ms. Robertson is a 74 year old female Patient presented to the emergency department for chest pain. She states that she has been having chest pain on and off, centrally located in the middle of her chest that does not radiate. She also develops numbness in her arms and gets leg cramps. She had an episode of chest pain yesterday, but it resolved on its own. When her daughter found out about these episodes, she contacted the patient's senior producer who recommended she come to the emergency department for further evaluation. She had a previous episode about 2 weeks ago where she had an episode of chest pain that required 3 nitroglycerin tablets to alleviate the pain. She did not come to the hospital at that time because she had "some other things going on." She has had some stress at home including the recent passing of one of her grandchildren. She took some aspirin prior to coming to the ER. She is seen and examined in the room, she reported absence of chest pain, palpitation, or lightheadedness. She reported cough with whitish mucus and dyspnea on exertion occasionally. Chest x-ray showed pulmonary fibrosis, superimposed acute interstitial process is possible, no dense consolidation, and sequela from granulomatosis disease. - Exam Vitals: Temp Pulse Resp BP Pulse Ox 97.5 F L 76 18 122/70 93 07/31/19 03:54 07/31/19 03:54 07/31/19 04:33 07/31/19 03:54 07/31/19 04:33 Exam: PHYSICAL EXAMINATION: GENERAL APPEARANCE: The patient is alert, oriented and in no acute distress. HEENT: Head is normocephalic. The sinuses are nontender. Pupils are equal and reactive. The nares are patent. Oropharynx clear without lesions. NECK: Supple without lymphadenopathy. HEART: Regular rate and rhythm. LUNGS: No crackles or wheezes are heard. ABDOMEN: Soft, nontender, nondistended with good bowel sounds heard. Inguinal area is normal. EXTREMITIES: Without cyanosis, clubbing or edema. NEUROLOGICAL: Gross nonfocal. SKIN: Warm and dry without any rash. - Assessment and Plan (1) Chest pain Current Visit: Yes Status: Acute Assessment and Plan: Chest pain now resolved, EKG nonischemic. Troponin negative x3. Cardiac telemetry Echocardiogram and stress test pending. (2) Anemia Current Visit: No Status: Chronic Assessment and Plan: Patient has chronic anemia, currently hemoglobin at baseline. No signs of bleeding. Continue to monitor (3) COPD (chronic obstructive pulmonary disease) Current Visit: No Status: Acute Assessment and Plan: Patient has significant history of smoking. She was given breathing treatments in the emergency department. Chest x-ray showed pulmonary fibrosis. Continue IV azithromycin Continue breathing treatments Continue oral prednisone (4) Tobacco abuse disorder Current Visit: No Status: Acute Assessment and Plan: Nicotine patch (5) DVT prophylaxis Current Visit: Yes Status: Acute Assessment and Plan: Subcutaneous heparin. - Time Spent with Patient Total time spent is greater than 50% in coordination of care (as documented) at patient's floor/unit and/or counseling patient: Greater than 35 minutes Plan of Care Discussed with: patient Internal Medicine: Result - Labs CBC & Chem 7: 07/31/19 06:15 07/31/19 06:15 Labs: Short CBC 07/30/19 07/31/19 Range/Units 18:00 06:15 WBC 5.3 3.6 L (4.3-11.1) K/mcL Hgb 10.5 L 10.3 L (11.5-15.4) g/dL Hct 31.3 L 30.1 L (35.3-44.9) % Plt Count 175 159 (140-400) K/mcL Neutrophils # 2.5 (1.6-8.9) K/mcL BMP 07/30/19 07/31/19 18:00 06:15 Sodium 137 136 Potassium 3.6 3.9 Chloride 104 106 Carbon Dioxide 24 23 BUN 21 20 Creatinine 1.20 1.16 Glucose 118 H 218 H Calcium 9.1 9.0 Cardiac Enzymes 07/30/19 07/31/19 07/31/19 Range/Units 18:00 00:22 06:15 Troponin I < 0.03 < 0.03 < 0.03 (< 0.04) ng/mL - ABG Interpretation ABG results: PT/INR, D-dimer PT 10.0 Seconds (9.4-12.1) 07/30/19 18:00 - Impressions Impressions Chest X-Ray 07/30/19 17:51 IMPRESSION: Pulmonary fibrosis. Superimposed acute interstitial process (i.e. Acute interstitial pneumonitis) is a consideration. No dense consolidation. Sequela from old granulomatous disease. D/ / Tray Fuentes / Tray Fuentes Interpreting Provider: Tray Fuentes Head CT 07/30/19 18:35 IMPRESSION: No acute intracranial abnormality. D/ / Deshawn Chin MD / Deshawn Chin MD Interpreting Provider: Deshawn Chin MD Consult Discharge Plan - Plan Referrals: Andrea Cruz MD [Primary Care Provider] - (1) Chest pain Qualifiers: Chest pain type: unspecified Qualified Code(s): R07.9 - Chest pain, unspe cified (2) Anemia Qualifiers: Anemia type: unspecified type Qualified Code(s): D64.9 - Anemia, unspecified (3) COPD (chronic obstructive pulmonary disease) Qualifiers: COPD type: chronic bronchitis Chronic bronchitis type: simple Qualified Code(s): J41.0 - Simple chronic bronchitis
[2019-07-31] MEDS: predniSONE 20 MG TABLET PO SCH (14:23)
[2019-07-31] MEDS ORDERED: Azithromycin 500 MG in 0.9 % Sodium Chloride 250 ML IVPB SCH (21:00)
[2019-08-01] MEDS: Insulin LISPRO 300 UNITS/3 ML VIAL SQ SCH ×2 (02:21→09:10)
[2019-08-01 02:42] LABS: Hematocrit 31.8 % (35.3-44.9); Hemoglobin 10.7 g/dL (11.5-15.4); Mean Corpuscular HGB Conc 33.6 g/dL (31.6-35.5); Mean Corpuscular Hemoglobin 31.8 pg (28.0-33.3); Mean Corpuscular Volume 94.4 fL (83.0-100.0); Mean Platelet Volume 9.5 fL (9.4-12.4); Platelet Count 181 K/mcL (140-400); Red Blood Count 3.37 M/mcL (3.82-4.97); Red Cell Distribution Width 13.8 % (11.5-14.5)
[2019-08-01 03:00] LABS: White Blood Count 5.8 K/mcL (4.3-11.1)
[2019-08-01 03:04] LABS: Calcium 8.8 mg/dL (8.6-10.3); Potassium 4.1 mEq/L (3.5-5.1)
[2019-08-01] MEDS: Ipratropium/Albuterol Neb 3 ML IH SCH ×3 (04:22→16:13)
[2019-08-01] MEDS: *HR* Heparin 5,000 UNIT/ML VIAL SQ SCH (06:14)
[2019-08-01] MEDS ORDERED: 0.9 % Sodium Chloride 500 ML IVC SCH (08:45)
[2019-08-01] MEDS: Nicotine 21 MG PATCH.TD24 TD SCH (09:08)
[2019-08-01] MEDS: predniSONE 20 MG TABLET PO SCH (09:08)
[2019-08-01] MEDS ORDERED: Insulin LISPRO 300 UNITS/3 ML VIAL SQ SCH ×2 (11:30→21:00)
[2019-08-01 12:30] VITALS: BP 164/94
[2019-08-01 13:44] LABS: Calcium 9.1 mg/dL (8.6-10.3)
--- NOTE | 2019-08-01 14:41 | Discharge Summary ---
- NOTES TO OUTPATIENT PROVIDER Notes to Outpatient Provider: Presented with chest pain underwent cardiac stress test which was negative for ischemia or infarct. COPD excerbation- steroid burst azithromycin Date of Encounter: 08/01/19 Time of Encounter: 14:33 - Discharge Diagnosis (1) Chest pain Priority: Primary Status: Acute Qualifiers: Chest pain type: unspecified Qualified Code(s): R07.9 - Chest pain, unspecified (2) Anemia Priority: Secondary Status: Chronic Qualifiers: Anemia type: unspecified type Qualified Code(s): D64.9 - Anemia, unspecified (3) COPD (chronic obstructive pulmonary disease) Priority: Secondary Status: Acute Qualifiers: COPD type: chronic bronchitis Chronic bronchitis type: simple Qualified Code(s): J41.0 - Simple chronic bronchitis (4) Tobacco abuse disorder Priority: Secondary Status: Acute Hospital course: Ms. Robertson is a 74 year old female past medical history COPD coronary disease CVA DVT diabetes GERD hyperlipidemia hypertension myocardial infarction peripheral artery disease renal disease and TIA current smoker 2 packs a day. Patient presented to [facility] ED after experiencing [place] chest pain centrally located nonradiating she also developed numbness in her arms and some leg cramps pain did resolve on its own. She contacted her template storage clerk advised her to go to the emergency department. Patient has been under stress with the recent of her grandchild she also has been experiencing a cough with no fever denies any wheezing. EKG with no ST-T wave abnormalities chest x-ray did show pulmonary fibrosis superimposed acute interstitial process possibly pneumonitis head CT showed no acute intracranial abnormalities-patient underwent a cardiac stress test which was negative for any ischemia or infarct cardiac echo that showed EF of 65% with normal LV chamber size wall thickness and function normal right ventricular structure and function mild to moderate tricuspid regurgitation and mild pulmonary hypertension nondiagnostic PFO with agitated saline contrast. Patient was given oral steroids as well as azithromycin respiratory status improved no chest pain overnight. She was given IV fluid for elevated creatinine which did improve. Patient will be discharged home and will follow-up with primary care provider as well as template storage clerk as outpatient. I will discharge with theroid burst as well as azithromycin. Patient verbalized understanding - Time Spent with Patient Total time spent providing and/or coordinating discharge services: - Discharge Medications Prescriptions: New Azithromycin 250 mg PO DAILY 4 Days #4 tablet predniSONE [PredniSONE] 40 mg PO DAILY 3 Days #3 tablet Continued Nitroglycerin [Nitrostat] 0.4 mg SL AD PRN #0 PRN Reason: Chest Pain HYDROcodone/Acet 5/325 mg [[place] 5-325 mg] 1 tab PO BID PRN #0 PRN Reason: Pain Aspirin Enteric Coated [Aspirin EC] 81 mg PO QAM Calcium Carbonate/Vitamin D3 [Calcium 500-Vit D3 200 Caplet] 1 tab PO QAM Melatonin 3 mg PO HS Polyethylene Glycol 3350 [MiraLAX] 17 gm PO DAILY PRN PRN Reason: Constipation Ipratropium/Albuterol Neb [Duoneb] 3 ml IH BID PRN PRN Reason: Shortness Of Breath Ranitidine HCl [Zantac] 300 mg PO QPM Albuterol Sulfate [Ventolin Hfa] 2 puff PO QID PRN PRN Reason: Shortness Of Breath Atorvastatin [Lipitor] 40 mg PO QPM Budesonide/Formoterol 160/4.5 [Symbicort 160/4.5] 2 puff PO BID Buspirone HCl [Buspar] 10 mg PO BID Cetirizine HCl 10 mg PO QAM Clopidogrel [Plavix] 75 mg PO QAM Ergocalciferol (VITAMIN D2) [Vitamin D2] 50,000 units PO TH Gabapentin [Neurontin] 300 mg PO BID Hydrochlorothiazide [Microzide] 12.5 mg PO QAM Icosapent Ethyl [Vascepa] 2 gm PO BID Isosorbide MONOnitrate (24 HR) [Imdur] 60 mg PO QAM Pantoprazole Sodium [Protonix] 40 mg PO QAM No Action Esomeprazole Magnesium [Nexium] 40 mg PO QAM Carvedilol 3.125 mg PO BID Home Medications: Aspirin Enteric Coated [Aspirin EC] 81 mg PO QAM 06/27/15 [History] HYDROcodone/Acet 5/325 mg [[place] 5-325 mg] 1 tab PO BID PRN #0 06/27/15 [History] Nitroglycerin [Nitrostat] 0.4 mg SL AD PRN #0 06/27/15 [History] Calcium Carbonate/Vitamin D3 [Calcium 500-Vit D3 200 Caplet] 1 tab PO QAM 02/10/17 [History] Esomeprazole Magnesium [Nexium] 40 mg PO QAM 10/04/17 [History] Melatonin 3 mg PO HS 10/04/17 [History] Polyethylene Glycol 3350 [MiraLAX] 17 gm PO DAILY PRN 10/04/17 [History] Ipratropium/Albuterol Neb [Duoneb] 3 ml IH BID PRN 02/17/18 [History] Ranitidine HCl [Zantac] 300 mg PO QPM 02/17/18 [History] Albuterol Sulfate [Ventolin Hfa] 2 puff PO QID PRN 07/31/19 [History] Atorvastatin [Lipitor] 40 mg PO QPM 07/31/19 [History] Budesonide/Formoterol 160/4.5 [Symbicort 160/4.5] 2 puff PO BID 07/31/19 [History] Buspirone HCl [Buspar] 10 mg PO BID 07/31/19 [History] Carvedilol 3.125 mg PO BID 07/31/19 [History] Cetirizine HCl 10 mg PO QAM 07/31/19 [History] Clopidogrel [Plavix] 75 mg PO QAM 07/31/19 [History] Ergocalciferol (VITAMIN D2) [Vitamin D2] 50,000 units PO TH 07/31/19 [History] Gabapentin [Neurontin] 300 mg PO BID 07/31/19 [History] Hydrochlorothiazide [Microzide] 12.5 mg PO QAM 07/31/19 [History] Icosapent Ethyl [Vascepa] 2 gm PO BID 07/31/19 [History] Isosorbide MONOnitrate (24 HR) [Imdur] 60 mg PO QAM 07/31/19 [History] Pantoprazole Sodium [Protonix] 40 mg PO QAM 07/31/19 [History] Azithromycin 250 mg PO DAILY 4 Days #4 tablet 08/01/19 [Rx] predniSONE [PredniSONE] 40 mg PO DAILY 3 Days #3 tablet 08/01/19 [Rx] Allergies/Adverse Reactions: Allergy/AdvReac Type Severity Reaction Status Date / Time Apple Allergy See Verified 07/31/19 12:13 Comments codeine Allergy Hives Verified 07/31/19 12:13 [place] Allergy Hives Verified 07/31/19 12:13 Penicillins Allergy Hives Verified 07/31/19 12:13 Sodium Phosphate AdvReac Vomiting Verified 07/31/19 12:13 [From Fleet Enema] Date of admission: 07/30/19 20:33 Primary care physician: Andrea Cruz MD Consults: 07/30/19 22:23 Consult to Pari [employer] Ticket Seller [CONS] Routine Reason for SW Consult: pt has home health nursing through [facility] and aide service through [facility]. 07/31/19 02:31 Consult to Nurse Navigator [CONS] Routine Comment: Discharging clinician: Geraldine Oh Anticipated date of discharge: 08/01/19 - Constitutional Vitals: Temp Pulse Resp BP Pulse Ox 97.6 F 96 17 164/94 96 08/01/19 12:29 08/01/19 12:29 08/01/19 12:29 08/01/19 12:29 08/01/19 12:29 General appearance: Present: cooperative, A&O X 3, pleasant, no acute distress, answers questions appropriately Exam: Skin: Free of rash and discoloration. Eyes: Sclera is white. There is no discharge from eyes. ENMT: Oral/pharyngeal mucosa is normal in appearance. There is no discharge from nose or ears. Respiratory: Normal breath sounds with no crackles and wheezes bilaterally. CV: Heart is regular with no gallop or murmur. GI: Abdomen is flat and soft with no palpable mass or visceromegaly. : There is no tenderness in patient's flanks bilaterally. Neuro exam: He has good strength in upper and lower extremities. He has normal eye movements. Psychiatric: He has normal affect. His thought process is appropriate to the situation. - Patient Status Disposition: Home, Self-Care Condition: Fair Functional capacity at discharge: independent ambulation Overall status at discharge: patient is back to baseline - Discharge Instructions Instructions: Chest Pain (DC) Follow Up With: Andrea Cruz MD [Primary Care Provider] - 08/06/19 10:15 am - Diet and Activity Activity: increase activity as tolerated Diet: low fat, low cholesterol, low salt diet
--- NOTE | 2019-08-06 11:34 | Electrocardiograph Report ---
[address] [place], [place] [address] Test Date: 2019-07-30 Pat Name: Libby Robertson Department: [id number] Room: 3B46 Gender: Tongue Stitcher: : 1945 Requested By: Kaushik Montes Order Number: [id number] Reading MD: Pete Taveras Measurements Intervals [place] Rate: 64 P: 70 SC: 158 QRS: 37 QRSD: 101 T: 51 QT: 393 QTc: 406 Interpretive Statements Sinus rhythm BASELINE ARTIFACT Electronically Signed On 08-06-2019 11:33:27 EDT by Pete Taveras
== END 2019-08-01 16:29 | disposition home or self-care (01) ==
LOC: EMEROOARM 17:48 → 3BNU 17:48
PROVIDERS: ADMIT Family Medicine; ATTEND Family Medicine

== ENCOUNTER 2020-10-16 21:47 | Observation (INO) ==
[2020-10-16 22:25] LABS: Basophils % 0.4 %; Eosinophils # 0.3 K/mcL (0.0-0.6); Eosinophils % 3.3 %; Hematocrit 31.1 % (35.3-44.9); Immature Granulocytes % 0.4 % (0-4); Lymphocytes # 1.4 K/mcL (0.6-4.6); Lymphocytes % 16.6 %; Mean Corpuscular HGB Conc 32.2 g/dL (31.6-35.5); Mean Corpuscular Volume 93.4 fL (83.0-100.0); Mean Platelet Volume 9.1 fL (9.4-12.4); Monocytes # 0.7 K/mcL (0.0-1.3); Monocytes % 8.6 %; Neutrophils # 6.1 K/mcL (1.6-8.9); Platelet Count 233 K/mcL (140-400); Red Blood Count 3.33 M/mcL (3.82-4.97); Red Cell Distribution Width 13.2 % (11.5-14.5); Segmented Neutrophils % 70.7 %; White Blood Count 8.6 K/mcL (4.3-11.1)
[2020-10-16 22:42] LABS: BUN/Creatinine Ratio 25 (6-26); Blood Urea Nitrogen 24 mg/dL (8-23); Calcium 9.1 mg/dL (8.6-10.3); Carbon Dioxide 26 mEq/L (23-29); Chloride 102 mEq/L (98-107); Glucose 105 mg/dL (70-105); Osmolality,Calculated 288 (280-300); Potassium 3.8 mEq/L (3.5-5.1); Sodium 137 mEq/L (136-145); eGFR For African Americans > 60 (> 60); eGFR For Non-African Americans 56 (> 60)
[2020-10-16] MEDS ORDERED: Ipratropium/Albuterol Neb 3 ML IH ONE (22:49)
[2020-10-16] MEDS ORDERED: methylPREDNISolone 125 MG/2 ML VIAL IVP ONE (22:49)
[2020-10-16] MEDS ORDERED: Furosemide 40 MG/4 ML VIAL IVP ONE (23:17)
[2020-10-16] MEDS ORDERED: Azithromycin 500 MG in 0.9 % Sodium Chloride 250 ML IVPB ONE (23:42)
[2020-10-17 01:08] LABS: Adenovirus Not Detected (Not Detect); Bordetella Pertussis Not Detected (Not Detect); Chlamydophila pneumoniae Not Detected (Not Detect); Coronavirus 229E Not Detected (Not Detect); Coronavirus HKU1 Not Detected (Not Detect); Coronavirus NL63 Not Detected (Not Detect); Coronavirus OC43 Not Detected (Not Detect); Human Metapneumovirus Not Detected (Not Detect); Human Rhinovirus/Enterovirus Not Detected (Not Detect); Influenza A Subtype 2009 H1 Not Detected (Not Detect); Influenza B Not Detected (Not Detect); Mycoplasma pneumoniae Not Detected (Not Detect); Parainfluenza Virus 1 Not Detected (Not Detect); Parainfluenza Virus 2 Not Detected (Not Detect); Parainfluenza Virus 3 Not Detected (Not Detect); Parainfluenza Virus 4 Not Detected (Not Detect); Respiratory Syncytial Virus Not Detected (Not Detect); SARS-CoV-2 Not Detected (Not Detect)
[2020-10-17] MEDS ORDERED: Naloxone 0.4 MG/ML INJ IVP PRN (01:34)
[2020-10-17] MEDS ORDERED: Acetaminophen 325 MG TABLET PO PRN (01:40)
[2020-10-17] MEDS ORDERED: Ondansetron 4 MG/2 ML VIAL IVP PRN (01:40)
[2020-10-17] MEDS ORDERED: Perflutren Lipid Microsphere 1.3 ML in 0.9 % Sodium Chloride 8.7 ML IVP PRN (01:48)
[2020-10-17 04:16] LABS: Basophils % 0.2 %; Eosinophils % 0.2 %; Hematocrit 29.1 % (35.3-44.9); Hemoglobin 9.7 g/dL (11.5-15.4); Immature Granulocytes % 0.9 % (0-4); Lymphocytes # 0.5 K/mcL (0.6-4.6); Lymphocytes % 9.4 %; Mean Corpuscular HGB Conc 33.3 g/dL (31.6-35.5); Mean Corpuscular Hemoglobin 30.9 pg (28.0-33.3); Mean Corpuscular Volume 92.7 fL (83.0-100.0); Mean Platelet Volume 9.2 fL (9.4-12.4); Monocytes # 0.1 K/mcL (0.0-1.3); Monocytes % 1.8 %; Neutrophils # 4.9 K/mcL (1.6-8.9); Platelet Count 193 K/mcL (140-400); Red Blood Count 3.14 M/mcL (3.82-4.97); Red Cell Distribution Width 13.2 % (11.5-14.5); Segmented Neutrophils % 87.5 %; White Blood Count 5.6 K/mcL (4.3-11.1)
[2020-10-17 04:33] LABS: INR 1.1; Prothrombin Time 12.9 Seconds (9.4-12.1)
[2020-10-17 04:34] LABS: Alanine Aminotransferase 8 Units/L (7-52); Albumin 3.7 g/dL (3.5-5.7); Albumin/Globulin Ratio 1.1 (1.1-2.2); Alkaline Phosphatase 53 Units/L (34-104); Aspartate Amino Transferase 10 Units/L (13-39); BUN/Creatinine Ratio 25 (6-26); Bilirubin,Total 0.4 mg/dL (0.3-1.0); Blood Urea Nitrogen 26 mg/dL (8-23); Calcium 8.6 mg/dL (8.6-10.3); Carbon Dioxide 23 mEq/L (23-29); Chloride 103 mEq/L (98-107); Globulin 3.5 g/dL (2.4-3.5); Glucose 197 mg/dL (70-105); Magnesium 1.2 mg/dL (1.6-2.6); Osmolality,Calculated 294 (280-300); Phosphorous 3.5 mg/dL (2.7-4.5); Potassium 3.4 mEq/L (3.5-5.1); Sodium 137 mEq/L (136-145); Total Protein 7.2 g/dL (6.4-8.9); Troponin I < 0.03 ng/mL (< 0.04); eGFR For African Americans > 60 (> 60); eGFR For Non-African Americans 52 (> 60)
[2020-10-17] MEDS ORDERED: Furosemide 40 MG/4 ML VIAL IVP SCH (09:00)
[2020-10-17] MEDS: Magnesium Oxide 400 MG TABLET PO SCH ×2 (09:02→19:55)
[2020-10-17] MEDS ORDERED: Regadenoson 0.4 MG/5 ML SYRINGE IVP ONE (09:53)
[2020-10-17] MEDS: *HR* Heparin 5,000 UNIT/ML VIAL SQ SCH (17:26)
[2020-10-17] MEDS ORDERED: Nicotine 21 MG PATCH.TD24 TD STA (18:50)
[2020-10-17] MEDS ORDERED: *HR* HYDROcodone/Acet 5/325 mg TABLET PO PRN (20:33)
[2020-10-17] MEDS: Gabapentin 300 MG CAPSULE PO SCH (22:51)
[2020-10-18] MEDS: *HR* Heparin 5,000 UNIT/ML VIAL SQ SCH (05:31)
[2020-10-18 06:34] VITALS: BP 112/65
[2020-10-18 07:12] LABS: Calcium 9.1 mg/dL (8.6-10.3); Magnesium 1.6 mg/dL (1.6-2.6); Potassium 3.9 mEq/L (3.5-5.1)
[2020-10-18] MEDS ORDERED: Furosemide 20 MG TABLET PO PRN (08:13)
[2020-10-18] MEDS ORDERED: Albuterol 2.5 MG/3 ML NEBULIZER IH PRN (09:42)
[2020-10-18] MEDS: Magnesium Oxide 400 MG TABLET PO SCH (09:44)
[2020-10-18] MEDS: Gabapentin 300 MG CAPSULE PO SCH (09:44)
[2020-10-18] MEDS ORDERED: carvediloL 6.25 MG TABLET PO SCH (17:00)
[2020-10-18] MEDS ORDERED: Melatonin 3 MG TABLET PO SCH (21:00)
[2020-10-18] MEDS ORDERED: Budesonide/Formoterol 160/4.5 1 PUFF INH IH SCH (21:00)
[2020-10-19] MEDS ORDERED: Isosorbide MONOnitrate (24 HR) 60 MG TAB.ER.24H PO SCH (09:00)
[2020-10-19] MEDS ORDERED: Aspirin Enteric Coated 81 MG Tablet PO SCH (09:00)
[2020-10-19] MEDS ORDERED: Cyanocobalamin (B-12) 1,000 MCG TABLET PO SCH (09:00)
[2020-10-23] MEDS ORDERED: Ergocalciferol (VIT D2) 50,000 UNIT (1.25MG) CAP PO SCH (09:42)
== END 2020-10-18 16:01 | disposition home or self-care (01) ==
LOC: 3BNU 21:47 → EMEROOARM 21:47 → 3BNU 10-17 01:39
PROVIDERS: ADMIT Internal Medicine; ATTEND Internal Medicine

== ENCOUNTER 2021-12-01 20:58 | Inpatient (IN) ==
[2021-12-01] MEDS ORDERED: Ipratropium/Albuterol Neb 3 ML IH ONE (21:25)
[2021-12-01] MEDS ORDERED: methylPREDNISolone 125 MG/2 ML VIAL IVP ONE (21:25)
[2021-12-01 21:48] LABS: Basophils % 0.4 %; Eosinophils # 0.1 K/mcL (0.0-0.6); Hematocrit 29.5 % (35.3-44.9); Hemoglobin 9.6 g/dL (11.5-15.4); Immature Granulocytes % 0.9 % (0-4); Lymphocytes # 1.5 K/mcL (0.6-4.6); Lymphocytes % 17.8 %; Mean Corpuscular HGB Conc 32.5 g/dL (31.6-35.5); Mean Corpuscular Hemoglobin 32.4 pg (28.0-33.3); Mean Corpuscular Volume 99.7 fL (83.0-100.0); Mean Platelet Volume 9.8 fL (9.4-12.4); Monocytes # 0.5 K/mcL (0.0-1.3); Monocytes % 5.7 %; Neutrophils # 6.1 K/mcL (1.6-8.9); Platelet Count 215 K/mcL (140-400); Red Blood Count 2.96 M/mcL (3.82-4.97); Red Cell Distribution Width 16.8 % (11.5-14.5); Segmented Neutrophils % 74.2 %; White Blood Count 8.2 K/mcL (4.3-11.1)
[2021-12-01 21:51] LABS: ABG Base Excess -6 mEq/L (-2 to 3); ABG HCO3 17 mEq/L (21-27); ABG Oxygen Saturation 97 % (95-98); ABG PCO2 28 mmHg (35-45); ABG PO2 85 mmHg (85-104); ABG TCO2 18 mEq/L (20-26)
[2021-12-01 22:15] LABS: Reactive Lymphocytes Present (Not Present)
[2021-12-01 22:18] LABS: Influenza A PCR Negative (Negative); Influenza B PCR Negative (Negative); Resp. Syncytial Virus PCR Negative (Negative)
[2021-12-01 22:25] LABS: SARS-CoV-2 by PCR (In House) Positive (Negative)
[2021-12-01] MEDS ORDERED: Albuterol 2.5 MG/3 ML NEBULIZER IH ONE (22:50)
[2021-12-01 23:06] LABS: Amorphous Sediment,Urine Few per hpf (None-Few); Bacteria,Urine Moderate per hpf (None-Few); Bilirubin,Urine Negative (Negative); Blood,Urine Negative (Negative); Clarity,Urine Turbid (Clear); Color,Urine Yellow (Yellow); Glucose,Urine (UA) Normal (Normal); Hyaline Casts,Urine Few per lpf (None Seen); Ketones,Urine Negative (Negative); Leukocyte Esterase,Urine Small (Negative); Mucus,Urine Few per lpf (None-Few); Nitrite,Urine Negative (Negative); PH,Urine 5.5 pH Units (5.0-8.0); Protein,Urine 50 mg/dL (Neg-Trace); RBC,Urine 0-3 per hpf (0-3); Specific Gravity,Urine 1.019 (1.010-1.025); Squamous Epithelial Cell,Urine Few per hpf (None-Few); Urobilinogen,Urine Normal (Normal)
[2021-12-01 23:14] LABS: Alanine Aminotransferase 24 Units/L (7-52); Albumin 3.6 g/dL (3.5-5.7); Alkaline Phosphatase 52 Units/L (34-104); Aspartate Amino Transferase 26 Units/L (13-39); BUN/Creatinine Ratio 36 (6-26); Bilirubin,Total 0.5 mg/dL (0.3-1.0); Blood Urea Nitrogen 58 mg/dL (8-23); Calcium 8.8 mg/dL (8.6-10.3); Carbon Dioxide 18 mEq/L (23-29); Chloride 108 mEq/L (98-107); Globulin 3.7 g/dL (2.4-3.5); Glucose 100 mg/dL (70-105); Magnesium 1.6 mg/dL (1.6-2.6); Osmolality,Calculated 306 (280-300); Potassium 4.3 mEq/L (3.5-5.1); Sodium 140 mEq/L (136-145); Total Protein 7.3 g/dL (6.4-8.9); eGFR For African Americans 38 (> 60); eGFR For Non-African Americans 31 (> 60)
[2021-12-01 23:15] LABS: Troponin I < 0.03 ng/mL (< 0.04)
[2021-12-01] MEDS ORDERED: Isovue-370 500 ML BOTTLE IVP ONE (23:23)
[2021-12-01] MEDS ORDERED: Azithromycin 250 MG TABLET PO ONE (23:28)
[2021-12-01] MEDS ORDERED: cefTRIAXone 1,000 MG in 0.9 % Sodium Chloride Mini Bag 100 ML IVPB ONE (23:33)
[2021-12-02 00:14] LABS: INR 1.1; Prothrombin Time 12.2 Seconds (9.4-12.1)
[2021-12-02] MEDS ORDERED: 0.9 % Sodium Chloride 500 ML IVC PRN (00:23)
[2021-12-02] MEDS ORDERED: Ondansetron 4 MG/2 ML VIAL IVP PRN (00:28)
[2021-12-02] MEDS ORDERED: Acetaminophen 325 MG TABLET PO PRN (00:28)
[2021-12-02] MEDS ORDERED: Naloxone 0.4 MG/ML INJ IVP PRN (00:28)
[2021-12-02 02:43] LABS: Basophils % 0.4 %; Eosinophils % 0.1 %; Hematocrit 28.3 % (35.3-44.9); Hemoglobin 9.6 g/dL (11.5-15.4); Immature Granulocytes % 0.8 % (0-4); Lymphocytes # 0.8 K/mcL (0.6-4.6); Lymphocytes % 10.7 %; Mean Corpuscular HGB Conc 33.9 g/dL (31.6-35.5); Mean Corpuscular Hemoglobin 31.9 pg (28.0-33.3); Mean Platelet Volume 9.3 fL (9.4-12.4); Monocytes # 0.1 K/mcL (0.0-1.3); Monocytes % 1.6 %; Neutrophils # 6.5 K/mcL (1.6-8.9); Platelet Count 202 K/mcL (140-400); Red Blood Count 3.01 M/mcL (3.82-4.97); Red Cell Distribution Width 12.5 % (11.5-14.5); Segmented Neutrophils % 86.4 %; White Blood Count 7.5 K/mcL (4.3-11.1)
[2021-12-02 02:55] LABS: Fibrinogen 578 mg/dL (169-393)
[2021-12-02 02:57] LABS: D-Dimer 4592 ng/mLFEU (0-500)
[2021-12-02 03:00] LABS: Albumin 3.6 g/dL (3.5-5.7); Albumin/Globulin Ratio 0.9 (1.1-2.2); Bilirubin,Indirect 0.4 mg/dL (0.0-1.0); Bilirubin,Total 0.4 mg/dL (0.3-1.0); Globulin 3.8 g/dL (2.4-3.5); Total Protein 7.4 g/dL (6.4-8.9)
[2021-12-02 03:01] LABS: Calcium 8.6 mg/dL (8.6-10.3); Magnesium 1.6 mg/dL (1.6-2.6); Potassium 4.2 mEq/L (3.5-5.1)
[2021-12-02 03:15] LABS: Thyroid Stimulating Hormone 0.807 mcIU/mL (0.340-5.600)
[2021-12-02] MEDS: *HR* Heparin 5,000 UNIT/ML VIAL SQ SCH ×3 (05:33→22:08)
[2021-12-02] MEDS ORDERED: cefTRIAXone 1,000 MG in 0.9 % Sodium Chloride Mini Bag 100 ML IVPB SCH (09:00)
[2021-12-02] MEDS: MethylPREDNISolone 40 MG/ML VIAL IVP SCH ×2 (09:26→22:08)
[2021-12-02] MEDS: Azithromycin 500 MG in 0.9 % Sodium Chloride 250 ML IVPB SCH (09:28)
[2021-12-02] MEDS ORDERED: Nitroglycerin 0.4 MG TAB.SUBL SL PRN (15:11)
[2021-12-02] MEDS: *HR* HYDROcodone/Acet 5/325 mg TABLET PO PRN (15:28)
[2021-12-02] MEDS: Budesonide/Formoterol 160/4.5 1 PUFF INH IH SCH (19:55)
[2021-12-02] MEDS: Melatonin 3 MG TABLET PO SCH (22:08)
[2021-12-02] MEDS: ICOSAPENT ETHYL PO SCH (22:08)
[2021-12-02] MEDS: Gabapentin 300 MG CAPSULE PO SCH (22:08)
[2021-12-02] MEDS: carvediloL 6.25 MG TABLET PO SCH (22:45)
[2021-12-03] MEDS: *HR* Heparin 5,000 UNIT/ML VIAL SQ SCH ×3 (06:20→21:45)
[2021-12-03 06:31] LABS: Basophils % 0.1 %; Hematocrit 27.2 % (35.3-44.9); Hemoglobin 8.9 g/dL (11.5-15.4); Immature Granulocytes % 1.9 % (0-4); Lymphocytes % 12.8 %; Mean Corpuscular HGB Conc 32.7 g/dL (31.6-35.5); Mean Corpuscular Volume 97.8 fL (83.0-100.0); Mean Platelet Volume 9.8 fL (9.4-12.4); Monocytes # 0.2 K/mcL (0.0-1.3); Monocytes % 2.5 %; Neutrophils # 6.5 K/mcL (1.6-8.9); Platelet Count 210 K/mcL (140-400); Red Blood Count 2.78 M/mcL (3.82-4.97); Red Cell Distribution Width 12.4 % (11.5-14.5); Segmented Neutrophils % 82.7 %; White Blood Count 7.9 K/mcL (4.3-11.1)
[2021-12-03 06:50] LABS: Calcium 8.7 mg/dL (8.6-10.3); Potassium 4.3 mEq/L (3.5-5.1)
[2021-12-03 06:52] LABS: Platelet Estimate Normal (Normal)
[2021-12-03] MEDS: Budesonide/Formoterol 160/4.5 1 PUFF INH IH SCH ×2 (07:57→19:50)
[2021-12-03] MEDS: Isosorbide MONOnitrate (24 HR) 60 MG TAB.ER.24H PO SCH (08:47)
[2021-12-03] MEDS: predniSONE 20 MG TABLET PO SCH (08:47)
[2021-12-03] MEDS: carvediloL 6.25 MG TABLET PO SCH ×2 (08:47→21:32)
[2021-12-03] MEDS: Cyanocobalamin (B-12) 1,000 MCG TABLET PO SCH (08:48)
[2021-12-03] MEDS: Gabapentin 300 MG CAPSULE PO SCH ×2 (08:48→21:44)
[2021-12-03] MEDS: Loratadine 10 MG TABLET PO SCH (08:48)
[2021-12-03] MEDS: Azithromycin 500 MG in 0.9 % Sodium Chloride 250 ML IVPB SCH (08:48)
[2021-12-03] MEDS: Aspirin Enteric Coated 81 MG Tablet PO SCH (08:48)
[2021-12-03] MEDS: ICOSAPENT ETHYL PO SCH ×2 (08:53→21:33)
[2021-12-03] MEDS: Melatonin 3 MG TABLET PO SCH (21:44)
[2021-12-04 01:59] LABS: Basophils % 0.2 %; Hematocrit 24.7 % (35.3-44.9); Hemoglobin 8.2 g/dL (11.5-15.4); Lymphocytes # 1.2 K/mcL (0.6-4.6); Lymphocytes % 13.2 %; Mean Corpuscular HGB Conc 33.2 g/dL (31.6-35.5); Mean Corpuscular Hemoglobin 32.7 pg (28.0-33.3); Mean Corpuscular Volume 98.4 fL (83.0-100.0); Mean Platelet Volume 9.5 fL (9.4-12.4); Monocytes # 0.5 K/mcL (0.0-1.3); Monocytes % 5.1 %; Neutrophils # 7.5 K/mcL (1.6-8.9); Platelet Count 218 K/mcL (140-400); Red Blood Count 2.51 M/mcL (3.82-4.97); Red Cell Distribution Width 12.4 % (11.5-14.5); Segmented Neutrophils % 79.5 %; White Blood Count 9.4 K/mcL (4.3-11.1)
[2021-12-04 02:14] LABS: Calcium 8.2 mg/dL (8.6-10.3); Potassium 3.9 mEq/L (3.5-5.1)
[2021-12-04] MEDS: *HR* Heparin 5,000 UNIT/ML VIAL SQ SCH (05:52)
[2021-12-04] MEDS ORDERED: Isovue-370 500 ML BOTTLE IVP ONE (07:44)
[2021-12-04] MEDS: Isosorbide MONOnitrate (24 HR) 60 MG TAB.ER.24H PO SCH (08:04)
[2021-12-04] MEDS: predniSONE 20 MG TABLET PO SCH (08:04)
[2021-12-04] MEDS: carvediloL 6.25 MG TABLET PO SCH ×2 (08:04→21:13)
[2021-12-04] MEDS: Gabapentin 300 MG CAPSULE PO SCH ×2 (08:04→21:12)
[2021-12-04] MEDS: Aspirin Enteric Coated 81 MG Tablet PO SCH (08:04)
[2021-12-04] MEDS: Loratadine 10 MG TABLET PO SCH (08:04)
[2021-12-04] MEDS: Cyanocobalamin (B-12) 1,000 MCG TABLET PO SCH (08:04)
[2021-12-04] MEDS: Azithromycin 500 MG in 0.9 % Sodium Chloride 250 ML IVPB SCH (08:05)
[2021-12-04] MEDS: Budesonide/Formoterol 160/4.5 1 PUFF INH IH SCH ×2 (08:05→19:31)
[2021-12-04] MEDS: ICOSAPENT ETHYL PO SCH (08:05)
[2021-12-04] MEDS ORDERED: Perflutren Lipid Microsphere 1.3 ML in 0.9 % Sodium Chloride 8.7 ML IVP PRN (11:47)
[2021-12-04] MEDS ORDERED: *HR* Heparin 5,000 UNIT/ML VIAL IVP ONE (11:47)
[2021-12-04] MEDS ORDERED: *HR* Heparin 5,000 UNIT/ML VIAL IVP PRN ×2 (11:47)
[2021-12-04] MEDS ORDERED: Heparin 25,000UNIT/250ML 1/2NS 25,000 UNIT/250 ML IV.SOLN IVC SCH (12:00)
[2021-12-04 15:09] LABS: Hematocrit 26.2 % (35.3-44.9); Hemoglobin 8.6 g/dL (11.5-15.4); Mean Corpuscular HGB Conc 32.8 g/dL (31.6-35.5); Mean Corpuscular Hemoglobin 31.4 pg (28.0-33.3); Mean Corpuscular Volume 95.6 fL (83.0-100.0); Mean Platelet Volume 9.3 fL (9.4-12.4); Platelet Count 232 K/mcL (140-400); Red Blood Count 2.74 M/mcL (3.82-4.97); Red Cell Distribution Width 12.5 % (11.5-14.5); White Blood Count 8.4 K/mcL (4.3-11.1)
[2021-12-04 15:17] LABS: INR 1.1; Prothrombin Time 11.9 Seconds (9.4-12.1)
[2021-12-04 15:22] LABS: Heparin anti-factor XA UFH 1.28 IU/mL (0.30-0.70)
[2021-12-04] MEDS: Melatonin 3 MG TABLET PO SCH (21:13)
[2021-12-05 03:06] LABS: BUN/Creatinine Ratio 35 (6-26); Blood Urea Nitrogen 34 mg/dL (8-23); Calcium 8.3 mg/dL (8.6-10.3); Carbon Dioxide 22 mEq/L (23-29); Chloride 109 mEq/L (98-107); Glucose 121 mg/dL (70-105); Osmolality,Calculated 297 (280-300); Potassium 4.1 mEq/L (3.5-5.1); Sodium 139 mEq/L (136-145); eGFR For African Americans > 60 (> 60); eGFR For Non-African Americans 55 (> 60)
[2021-12-05 03:08] LABS: Basophils % 0.1 %; Hematocrit 24.9 % (35.3-44.9); Hemoglobin 8.2 g/dL (11.5-15.4); Immature Granulocytes % 2.5 % (0-4); Lymphocytes # 1.3 K/mcL (0.6-4.6); Lymphocytes % 18.8 %; Mean Corpuscular HGB Conc 32.9 g/dL (31.6-35.5); Mean Corpuscular Hemoglobin 31.9 pg (28.0-33.3); Mean Corpuscular Volume 96.9 fL (83.0-100.0); Mean Platelet Volume 9.3 fL (9.4-12.4); Monocytes # 0.5 K/mcL (0.0-1.3); Monocytes % 7.1 %; Neutrophils # 5.1 K/mcL (1.6-8.9); Platelet Count 221 K/mcL (140-400); Red Blood Count 2.57 M/mcL (3.82-4.97); Red Cell Distribution Width 12.4 % (11.5-14.5); Segmented Neutrophils % 71.5 %; White Blood Count 7.1 K/mcL (4.3-11.1)
[2021-12-05 05:15] LABS: Troponin I < 0.03 ng/mL (< 0.04)
[2021-12-05] MEDS: Budesonide/Formoterol 160/4.5 1 PUFF INH IH SCH ×2 (07:42→19:25)
[2021-12-05] MEDS: Azithromycin 500 MG in 0.9 % Sodium Chloride 250 ML IVPB SCH (09:14)
[2021-12-05] MEDS: Cyanocobalamin (B-12) 1,000 MCG TABLET PO SCH (09:15)
[2021-12-05] MEDS: predniSONE 20 MG TABLET PO SCH (09:15)
[2021-12-05] MEDS: Isosorbide MONOnitrate (24 HR) 60 MG TAB.ER.24H PO SCH (09:15)
[2021-12-05] MEDS: Gabapentin 300 MG CAPSULE PO SCH ×2 (09:15→22:20)
[2021-12-05] MEDS: Aspirin Enteric Coated 81 MG Tablet PO SCH (09:15)
[2021-12-05] MEDS: Loratadine 10 MG TABLET PO SCH (09:15)
[2021-12-05] MEDS: carvediloL 6.25 MG TABLET PO SCH ×2 (09:16→22:20)
[2021-12-05] MEDS: Melatonin 3 MG TABLET PO SCH (22:20)
[2021-12-05] MEDS: Apixaban 5 MG TABLET PO SCH (22:20)
[2021-12-06 05:49] LABS: Basophils % 0.1 %; Eosinophils % 0.1 %; Hematocrit 25.3 % (35.3-44.9); Hemoglobin 8.4 g/dL (11.5-15.4); Immature Granulocytes % 2.3 % (0-4); Lymphocytes # 1.4 K/mcL (0.6-4.6); Lymphocytes % 18.2 %; Mean Corpuscular HGB Conc 33.2 g/dL (31.6-35.5); Mean Corpuscular Hemoglobin 31.5 pg (28.0-33.3); Mean Corpuscular Volume 94.8 fL (83.0-100.0); Mean Platelet Volume 9.3 fL (9.4-12.4); Monocytes # 0.5 K/mcL (0.0-1.3); Monocytes % 6.5 %; Neutrophils # 5.4 K/mcL (1.6-8.9); Platelet Count 222 K/mcL (140-400); Red Blood Count 2.67 M/mcL (3.82-4.97); Red Cell Distribution Width 12.5 % (11.5-14.5); Segmented Neutrophils % 72.8 %; White Blood Count 7.4 K/mcL (4.3-11.1)
[2021-12-06 06:05] LABS: BUN/Creatinine Ratio 34 (6-26); Blood Urea Nitrogen 26 mg/dL (8-23); Carbon Dioxide 23 mEq/L (23-29); Chloride 110 mEq/L (98-107); Glucose 101 mg/dL (70-105); Osmolality,Calculated 295 (280-300); Potassium 3.3 mEq/L (3.5-5.1); Sodium 140 mEq/L (136-145); eGFR For African Americans > 60 (> 60); eGFR For Non-African Americans > 60 (> 60)
[2021-12-06] MEDS: Budesonide/Formoterol 160/4.5 1 PUFF INH IH SCH ×2 (08:43→20:56)
[2021-12-06] MEDS: Gabapentin 300 MG CAPSULE PO SCH ×2 (09:03→22:26)
[2021-12-06] MEDS: carvediloL 6.25 MG TABLET PO SCH ×2 (09:03→22:25)
[2021-12-06] MEDS: Aspirin Enteric Coated 81 MG Tablet PO SCH (09:04)
[2021-12-06] MEDS: Apixaban 5 MG TABLET PO SCH ×2 (09:04→22:26)
[2021-12-06] MEDS: Azithromycin 500 MG in 0.9 % Sodium Chloride 250 ML IVPB SCH (09:04)
[2021-12-06] MEDS: predniSONE 20 MG TABLET PO SCH (09:04)
[2021-12-06] MEDS: Cyanocobalamin (B-12) 1,000 MCG TABLET PO SCH (09:04)
[2021-12-06] MEDS: Isosorbide MONOnitrate (24 HR) 60 MG TAB.ER.24H PO SCH (09:04)
[2021-12-06] MEDS: Loratadine 10 MG TABLET PO SCH (09:04)
[2021-12-06] MEDS: *HR* HYDROcodone/Acet 5/325 mg TABLET PO PRN (18:02)
[2021-12-06] MEDS: Melatonin 3 MG TABLET PO SCH (22:26)
[2021-12-07 08:29] LABS: Basophils % 0.3 %; Eosinophils % 0.5 %; Hematocrit 24.7 % (35.3-44.9); Hemoglobin 8.2 g/dL (11.5-15.4); Immature Granulocytes % 4.4 % (0-4); Lymphocytes # 1.7 K/mcL (0.6-4.6); Lymphocytes % 21.2 %; Mean Corpuscular HGB Conc 33.2 g/dL (31.6-35.5); Mean Corpuscular Hemoglobin 31.3 pg (28.0-33.3); Mean Corpuscular Volume 94.3 fL (83.0-100.0); Mean Platelet Volume 9.2 fL (9.4-12.4); Monocytes # 0.5 K/mcL (0.0-1.3); Monocytes % 6.2 %; Neutrophils # 5.4 K/mcL (1.6-8.9); Platelet Count 221 K/mcL (140-400); Red Blood Count 2.62 M/mcL (3.82-4.97); Red Cell Distribution Width 12.5 % (11.5-14.5); Segmented Neutrophils % 67.4 %
[2021-12-07 08:49] LABS: BUN/Creatinine Ratio 29 (6-26); Blood Urea Nitrogen 23 mg/dL (8-23); Calcium 7.9 mg/dL (8.6-10.3); Carbon Dioxide 24 mEq/L (23-29); Chloride 108 mEq/L (98-107); Glucose 122 mg/dL (70-105); Osmolality,Calculated 291 (280-300); Potassium 3.6 mEq/L (3.5-5.1); Sodium 138 mEq/L (136-145); eGFR For African Americans > 60 (> 60); eGFR For Non-African Americans > 60 (> 60)
[2021-12-07] MEDS: Loratadine 10 MG TABLET PO SCH (09:22)
[2021-12-07] MEDS: Cyanocobalamin (B-12) 1,000 MCG TABLET PO SCH (09:22)
[2021-12-07] MEDS: Gabapentin 300 MG CAPSULE PO SCH (09:22)
[2021-12-07] MEDS: carvediloL 6.25 MG TABLET PO SCH (09:22)
[2021-12-07] MEDS: Isosorbide MONOnitrate (24 HR) 60 MG TAB.ER.24H PO SCH (09:22)
[2021-12-07] MEDS: Apixaban 5 MG TABLET PO SCH (09:22)
[2021-12-07] MEDS: predniSONE 20 MG TABLET PO SCH (09:23)
[2021-12-07 10:23] VITALS: BP 121/71; PULSE 77; TEMP 97.9
[2021-12-07] MEDS: Budesonide/Formoterol 160/4.5 1 PUFF INH IH SCH (10:52)
[2021-12-07 13:55] VITALS: O2SAT 100
[2021-12-09 19:50] LABS: ABG Base Excess 2 mEq/L (-2 to 3); ABG HCO3 26 mEq/L (21-27); ABG Oxygen Saturation 100 % (95-98); ABG PCO2 33 mmHg (35-45); ABG PH 7.49 pH Units (7.32-7.45); ABG PO2 187 mmHg (85-104); ABG TCO2 27 mEq/L (20-26)
== END 2021-12-07 15:15 | disposition home health service (06) | DRG 177 ==
LOC: EMEROOARM 20:58 → 3BNU 20:58 → SUATTDRO 12-02 00:18 → 3BNU 12-02 01:19
PROVIDERS: ADMIT Student in an Organized Health Care Education/Training Program; ATTEND General Practice

== ENCOUNTER 2021-12-09 13:58 | Observation (INO) ==
[2021-12-09] MEDS ORDERED: Ipratropium/Albuterol Neb 3 ML IH ONE (17:21)
[2021-12-09 19:44] LABS: Basophils % 0.2 %; Eosinophils # 0.1 K/mcL (0.0-0.6); Eosinophils % 1.3 %; Hematocrit 27.7 % (35.3-44.9); Hemoglobin 9.3 g/dL (11.5-15.4); Lymphocytes # 2.1 K/mcL (0.6-4.6); Lymphocytes % 21.1 %; Mean Corpuscular HGB Conc 33.6 g/dL (31.6-35.5); Mean Corpuscular Hemoglobin 31.7 pg (28.0-33.3); Mean Corpuscular Volume 94.5 fL (83.0-100.0); Mean Platelet Volume 9.1 fL (9.4-12.4); Monocytes # 0.7 K/mcL (0.0-1.3); Monocytes % 6.7 %; Neutrophils # 6.8 K/mcL (1.6-8.9); Platelet Count 227 K/mcL (140-400); Red Blood Count 2.93 M/mcL (3.82-4.97); Red Cell Distribution Width 12.8 % (11.5-14.5); Segmented Neutrophils % 68.7 %; White Blood Count 9.9 K/mcL (4.3-11.1)
[2021-12-09 20:01] LABS: BUN/Creatinine Ratio 28 (6-26); Blood Urea Nitrogen 23 mg/dL (8-23); Calcium 8.1 mg/dL (8.6-10.3); Carbon Dioxide 25 mEq/L (23-29); Chloride 107 mEq/L (98-107); Glucose 79 mg/dL (70-105); Osmolality,Calculated 293 (280-300); Potassium 3.5 mEq/L (3.5-5.1); Sodium 140 mEq/L (136-145); Troponin I < 0.03 ng/mL (< 0.04); eGFR For African Americans > 60 (> 60); eGFR For Non-African Americans > 60 (> 60)
[2021-12-09] MEDS ORDERED: Naloxone 0.4 MG/ML INJ IVP PRN (20:53)
[2021-12-09] MEDS ORDERED: Melatonin 3 MG TABLET PO PRN (20:53)
[2021-12-10] MEDS: Acetaminophen 325 MG TABLET PO PRN (00:14)
[2021-12-10] MEDS: Apixaban 5 MG TABLET PO SCH ×3 (03:31→21:10)
[2021-12-10 05:41] LABS: Basophils % 0.1 %; Eosinophils # 0.1 K/mcL (0.0-0.6); Eosinophils % 1.8 %; Hematocrit 26.5 % (35.3-44.9); Hemoglobin 9.1 g/dL (11.5-15.4); Immature Granulocytes % 2.1 % (0-4); Lymphocytes % 26.6 %; Mean Corpuscular HGB Conc 34.3 g/dL (31.6-35.5); Mean Corpuscular Hemoglobin 32.4 pg (28.0-33.3); Mean Corpuscular Volume 94.3 fL (83.0-100.0); Mean Platelet Volume 9.3 fL (9.4-12.4); Monocytes # 0.5 K/mcL (0.0-1.3); Monocytes % 6.9 %; Neutrophils # 4.8 K/mcL (1.6-8.9); Platelet Count 214 K/mcL (140-400); Red Blood Count 2.81 M/mcL (3.82-4.97); Red Cell Distribution Width 12.9 % (11.5-14.5); Segmented Neutrophils % 62.5 %; White Blood Count 7.6 K/mcL (4.3-11.1)
[2021-12-10 08:30] LABS: Alanine Aminotransferase 25 Units/L (7-52); Albumin 3.1 g/dL (3.5-5.7); Albumin/Globulin Ratio 1.1 (1.1-2.2); Alkaline Phosphatase 45 Units/L (34-104); Aspartate Amino Transferase 19 Units/L (13-39); BUN/Creatinine Ratio 27 (6-26); Bilirubin,Total 0.5 mg/dL (0.3-1.0); Blood Urea Nitrogen 22 mg/dL (8-23); Calcium 8.1 mg/dL (8.6-10.3); Carbon Dioxide 26 mEq/L (23-29); Chloride 107 mEq/L (98-107); Chol/HDL Ratio 3.6 (0-4.9); Cholesterol 138 mg/dL (< 200); Globulin 2.7 g/dL (2.4-3.5); Glucose 75 mg/dL (70-105); HDL Cholesterol 38 mg/dL (40-59); LDL Cholesterol,Calculated 63 mg/dL (< 100); Magnesium 1.4 mg/dL (1.6-2.6); Osmolality,Calculated 294 (280-300); Potassium 3.9 mEq/L (3.5-5.1); Sodium 141 mEq/L (136-145); Total Protein 5.8 g/dL (6.4-8.9); Triglycerides 186 mg/dL (< 150); eGFR For African Americans > 60 (> 60); eGFR For Non-African Americans > 60 (> 60)
[2021-12-10] MEDS ORDERED: Aspirin Enteric Coated 81 MG Tablet PO SCH (09:00)
[2021-12-10] MEDS: carvediloL 6.25 MG TABLET PO SCH ×2 (09:10→16:35)
[2021-12-10] MEDS: Loratadine 10 MG TABLET PO SCH (09:11)
[2021-12-11] MEDS: Loratadine 10 MG TABLET PO SCH (08:36)
[2021-12-11] MEDS: Apixaban 5 MG TABLET PO SCH (08:36)
[2021-12-11] MEDS: carvediloL 6.25 MG TABLET PO SCH ×2 (08:37→17:09)
[2021-12-11] MEDS ORDERED: hydrOXYzine pamoate 25 MG CAPSULE PO PRN (10:32)
[2021-12-11] MEDS: Acetaminophen 325 MG TABLET PO PRN (13:57)
[2021-12-11 16:43] VITALS: BP 101/58; PULSE 58; TEMP 97.6; O2SAT 99
[2021-12-11] MEDS ORDERED: Furosemide 20 MG TABLET PO PRN (17:43)
[2021-12-11] MEDS ORDERED: Nitroglycerin 0.4 MG TAB.SUBL SL PRN (17:43)
[2021-12-11] MEDS ORDERED: Gabapentin 300 MG CAPSULE PO SCH (21:00)
[2021-12-11] MEDS ORDERED: ICOSAPENT ETHYL 1 GM PO SCH (21:00)
[2021-12-11] MEDS ORDERED: Melatonin 3 MG TABLET PO SCH (21:00)
[2021-12-11] MEDS ORDERED: Budesonide/Formoterol 160/4.5 1 PUFF INH IH SCH (22:00)
[2021-12-12] MEDS ORDERED: Isosorbide MONOnitrate (24 HR) 30 MG TAB.ER.24H PO SCH (09:00)
[2021-12-12] MEDS ORDERED: Multivit/Ca/Min/Fe/FA 1 TAB TABLET PO SCH (09:00)
[2021-12-12] MEDS ORDERED: NON-FORMULARY MEDICATION 1 EACH EACH (Fluticasone/Umeclidin/Vilanter [Trelegy Ellipta 100- IH SCH (09:00)
[2021-12-12] MEDS ORDERED: (Omega-3/Dha/Epa/Fish Oil [Fish Oil 1,000 Mg Softgel] PO SCH (09:00)
[2021-12-12] MEDS ORDERED: Tiotropium 10 INH DOSE IH SCH (10:00)
[2021-12-12] MEDS ORDERED: Apixaban 5 MG TABLET PO SCH (21:00)
[2021-12-17] MEDS ORDERED: Ergocalciferol (VIT D2) 50,000 UNIT (1.25MG) CAP PO SCH (09:00)
== END 2021-12-11 19:28 ==
LOC: EMEROOARM 13:58 → 3ANU 13:58 → SUATTDRO 21:46 → 3ANU 22:49
PROVIDERS: ADMIT Family Medicine; ATTEND Nurse Practitioner